=== PATIENT | female | born 1995 | race Caucasian/White ===

== ENCOUNTER → 2020-08-11 09:55 | Outpatient (BNVA) | payer OTHER, SELFPAY | PROVIDERS: PCP Internal Medicine; Visit Provider Advanced Practice Midwife ==

== ENCOUNTER 2020-08-18 08:48 | Outpatient (REF) | payer OTHER, SELFPAY ==
--- NOTE | ~2020-08-18 | US_ITS ---
EXAMINATION: US DIAGNOSTIC ULTRASOUND BREAST, LEFT CLINICAL INFORMATION: Left breast pain upper outer quadrant over 4 months. No palpable mass or discharge. No known family history breast cancer. No prior breast imaging. Age 25. COMPARISON: None. TECHNIQUE: Ultrasound left breast is targeted to the area of clinical concern upper outer quadrant. Grayscale imaging and color Doppler are performed without and with harmonics. FINDINGS: There is no focal suspicious finding. There is no solid mass, architectural abnormality, duct ectasia, or edema in the soft tissue planes. There is an incidental simple cyst 3:00 position 4 cm from nipple measuring only 0.9 x 0.5 cm. Results are discussed with the patient at time of visit. US/US breast LT limited IMPRESSION: 1. Incidental simple cyst 3:00 position under 1 cm. 2. No solid mass, architectural abnormality, or inflammatory changes. ASSESSMENT: BI-RADS 2: Benign RECOMMENDATION: 1. Patient's left breast pain should be managed based on the clinical impression. 2. Otherwise, routine annual screening mammography, beginning age 40, or earlier as clinical risk factors warrant. This patient's information was entered into a reminder system with a target due date for their next mammogram.
== END 2020-08-18 08:49 | disposition home or self-care (01) ==
LOC: HO.MAMMO 08:48
PROVIDERS: PCP Internal Medicine; Visit Provider Advanced Practice Midwife
DX: N64.4 Mastodynia (principal)
CPT/HCPCS: 76642

== ENCOUNTER 2020-10-07 08:19 | Outpatient (REF) | payer OTHER, SELFPAY ==
[2020-10-07 08:39] LABS: COVID-19 Test Negative (Negative)
== END 2020-10-07 08:20 | disposition home or self-care (01) ==
LOC: HO.EMPCOV 08:19
PROVIDERS: Visit Provider Internal Medicine
DX: Z20.822 Contact with and (suspected) exposure to COVID-19 (principal)
CPT/HCPCS: 36415; 87635; C9803

== ENCOUNTER 2021-07-15 13:51 | Outpatient (REF) | payer OTHER, SELFPAY ==
[2021-07-15 15:11] LABS: TSH reflex Free T4 1.94 uIU/mL (0.32-4.0)
== END 2021-07-15 13:52 | disposition home or self-care (01) ==
LOC: HO.LAB 13:51
PROVIDERS: PCP Internal Medicine; Visit Provider Internal Medicine Endocrinology, Diabetes & Metabolism
DX: E03.9 Hypothyroidism, unspecified (principal)
CPT/HCPCS: 36415; 84443

== ENCOUNTER 2021-11-16 10:01 | Outpatient (REF) | payer OTHER, SELFPAY ==
[2021-11-16 10:22] LABS: MANUAL DIFF FLAG NO
[2021-11-16 10:35] LABS: Basophils Percent Auto 0.4 % (0-2); Eosinophils Percent Auto 0.4 % (0-4); Hematocrit 38.3 % (37.0-47.0); Hemoglobin 12.7 g/dl (12.0-16.0); Imm Gran Abs Auto 0.01 X10*3/uL (0.00-0.03); Imm Gran Pct Auto 0.1 % (0.0-0.4); Lymphocytes Absolute Auto 1.8 X10*3/uL (1.2-4.9); Lymphocytes Percent Auto 26.2 % (20-40); Mean Corpuscular HGB Conc 33.2 g/dl (31.0-35.0); Mean Corpuscular Hemoglobin 27.1 pg (27.0-33.0); Mean Corpuscular Volume 81.7 fL (80.0-98.0); Mean Platelet Volume 10.3 fL (9.4-12.3); Monocytes Absolute Auto 0.6 X10*3/uL (0.1-1.2); Monocytes Percent Auto 8.2 % (2-11); Neutrophils Absolute Auto 4.4 x10*3/uL (2.0-8.3); Neutrophils Percent Auto 64.7 % (45-73); Platelet Count 276 X10*3/uL (160-400); Red Blood Count 4.69 X10*6/uL (4.20-5.50); Red Cell Distribution Width 13.1 % (11.0-16.0); White Blood Count 6.8 X10*3/uL (4.8-10.8)
[2021-11-16 11:16] LABS: Alanine Aminotransferase 10 U/L (0-31); Albumin Level 4.9 g/dL (3.5-5.0); Alkaline Phosphatase 45 U/L (39-117); Anion Gap 12 (12-20); Aspartate Amino Transferase 16 U/L (5-31); Bilirubin Total 0.8 mg/dL (0.0-1.0); Blood Urea Nitrogen 9 mg/dL (9-16); Calcium 9.7 mg/dL (8.4-10.2); Carbon Dioxide 23 mmol/L (22-29); Chloride 107 mmol/L (96-108); Cholesterol 201 mg/dL; Estimated Glomerular Filt Rate > 60; Gamma Glutamyl Transpeptidase 9 U/L (7-33); Glucose Random 83 mg/dL (60-115); HDL Cholesterol 61 mg/dL; Iron 106 mcg/dL (30-160); LDL Cholesterol Calculated 127 mg/dl; Percent Iron Saturation 33 % (15-50); Potassium 4.3 mmol/L (3.3-5.1); Sodium 138 mmol/L (135-145); Total Iron Binding Capacity 326 mcg/dL (228-428); Total Protein 7.6 g/dL (6.5-8.0); Triglycerides 66 mg/dL; Unsaturated Iron Binding 220 ug/dL
[2021-11-16 11:57] LABS: Ferritin 32 ng/mL (10-122); Free T4 (Free Thyroxine) 1.06 ng/dL (0.71-1.85); Thyroid Stimulating Hormone 1.87 uIU/mL (0.32-4.0); Vitamin D 25-OH Total 24.9 ng/mL (>30)
[2021-11-16 13:44] LABS: Insulin 4 uU/mL (2-29)
[2021-11-17 13:47] LABS: Calcium (PTHI) 9.9 mg/dL (8.6-10.2); PTHI 29 pg/mL (16-77)
[2021-11-17 18:42] LABS: Triiodothyronine T3 Free 3.2 pg/mL (2.3-4.2)
[2021-11-17 18:46] LABS: DHEA Sulfate 195 mcg/dL (14-349); Follicle Stimulating Hormone 5.1 mIU/mL
[2021-11-17 23:03] LABS: Thyroglobulin Antibodies 3 IU/mL (< or = 1); Thyroid Peroxidase Antibodies <1 IU/mL (<9)
[2021-11-18 14:41] LABS: CRP High Sensitivity <0.3 mg/L
[2021-11-19 16:41] LABS: Triiodothyronine T3 Reverse 18 ng/dL (8-25)
[2021-11-21 00:17] LABS: Dihydrotestosterone 28 ng/dL (< OR = 20)
[2021-11-21 05:07] LABS: Methylmalonic Acid 103 nmol/L (87-318)
[2021-11-21 14:36] LABS: Progesterone 19.9 ng/mL
[2021-11-21 18:21] LABS: Testosterone, Free 2.6 pg/mL (0.1-6.4); Testosterone, Total 32 ng/dL (2-45)
[2021-11-24 03:52] LABS: Estradiol Free 3.41 pg/mL; Estradiol, Ultrasensitive 202 pg/mL
== END 2021-11-16 10:02 | disposition home or self-care (01) ==
LOC: HO.LAB 10:01
PROVIDERS: PCP Internal Medicine; Visit Provider Internal Medicine
DX: E03.9 Hypothyroidism, unspecified (principal); F32.81 Premenstrual dysphoric disorder; E11.9 Type 2 diabetes mellitus without complications; E55.9 Vitamin D deficiency, unspecified; D64.9 Anemia, unspecified; E28.2 Polycystic ovarian syndrome; E78.5 Hyperlipidemia, unspecified; K76.0 Fatty (change of) liver, not elsewhere classified; R53.83 Other fatigue
CPT/HCPCS: 36415; 80053; 80061; 82306; 82627; 82642; 82670; 82681; 82728; 82977; 83001; 83002; 83090; 83525; 83540; 83921; 83970; 84144; 84402; 84403; 84439; 84443; 84481; 84482; 85025; 86141; 86376; 86800

== ENCOUNTER 2022-04-26 19:49 | Inpatient (IN) | payer OTHER, SELFPAY ==
--- NOTE | ~2022-04-26 | CT_ITS ---
EXAMINATION: CT ABDOMEN AND PELVIS WITHOUT CONTRAST CLINICAL INFORMATION: Left-sided flank pain, pyelonephritis vs obstructing stone COMPARISON: None TECHNIQUE: Multidetector volumetric imaging was performed from the superior aspect of the liver through the pubic symphysis. Sagittal and coronal reformatted images were obtained on the technologist's workstation. This CT examination was performed using dose optimization techniques as appropriate, variously including the following: *Automated exposure control *Adjustment of mA and/or kV according to patient size (this includes techniques or standardized protocols for targeted exams where dose is matched to indication/reason for exam; i.e. extremities or head) *Use of iterative reconstruction technique DLP: 302 mGy-cm FINDINGS: LUNG BASES: The visualized lung bases are unremarkable. LIVER, GALLBLADDER, AND BILIARY TREE: The liver is normal in size, shape, and attenuation. No focal hepatic lesion or biliary ductal dilatation is present. The gallbladder is unremarkable with no evidence of radiopaque gallstones, gallbladder wall thickening, or obvious pericholecystic inflammatory changes. PANCREAS: Unremarkable. SPLEEN: Unremarkable. ADRENAL GLANDS: Unremarkable. KIDNEYS AND URETERS: The kidneys are normal in size, shape, and attenuation. There is a barely perceptible punctate densities seen in the right kidney (see saucedo image). No hydronephrosis, hydroureter, or definitive calculi seen. No perinephric stranding. BLADDER: Unremarkable. GASTROINTESTINAL TRACT: The small and large bowel are unremarkable. The appendix is unremarkable. ABDOMINAL WALL: No significant hernia is appreciated. LYMPH NODES: No retroperitoneal lymphadenopathy. VASCULAR: Unremarkable. PELVIC VISCERA: A retroverted uterus is present. A small amount of free fluid is present in the pelvis. An abnormal adnexal mass is not seen. OSSEOUS STRUCTURES: Unremarkable. CT/CT abdomen pelvis wo IV con IMPRESSION: A cause for the patient's left flank pain has not been found. No calculi are present. There is no evidence of pyelonephritis. However, this noncontrast CT scan does not rule out hilum nephritis. Fleischner guidelines were followed.
[2022-04-26 20:16] VITALS: PULSE 97; RESP 16; TEMP 36.6; O2SAT 97; BMI 18.5
--- NOTE | 2022-04-26 20:16 | ED_ITS ---
HPI - Abdominal Pain General Chief Complaint: Urogenital-Female <Miranda Younger NP - Last Filed: 04/26/22 20:20> Stated Complaint: UTI/ Back pain <Miranda Younger NP - Last Filed: 04/26/22 20:20> Time Seen by Provider: 04/26/22 22:16 <Miranda Younger NP - Last Filed: 04/26/22 20:20> Source: patient <Janes Reese MD - Last Filed: 04/26/22 22:35> Mode of arrival: ambulatory <Janes Reese MD - Last Filed: 04/26/22 22:35> Limitations: no limitations <Janes Reese MD - Last Filed: 04/26/22 22:35> History of Present Illness HPI narrative: 27-year-old female was seen earlier today at work connection for UTI symptoms and hematuria patient was started on Macrobid, most of the dysuria and hematuria symptoms improved after the 1st dose of Macrobid but patient has been having bilateral flank pain. Patient has no fever or chills improvement of the lower urinary symptoms however she is concern of the flank pain. <Janes Reese MD - Last Filed: 04/26/22 22:35> Related Data Home Medications: Home Medications Medication Instructions Recorded Confirmed levothyroxine 25 mcg tablet 25 mcg PO DAILY 08/11/20 (Synthroid) Previous Rx's Medication Instructions Recorded cefuroxime axetil 500 mg tablet 500 mg PO BID #14 tabs 04/26/22 <Miranda Younger NP - Last Filed: 04/26/22 20:20> Allergies/Adverse Reactions: Allergies Allergy/AdvReac Type Severity Reaction Status Date / Time No Known Allergies Allergy Verified 08/11/20 10:12 <Miranda Younger NP - Last Filed: 04/26/22 20:20> Review of Systems Review of Systems All other systems are reviewed and are negative Constitutional: Reports as per HPI and Reports no additional constitutional complaints Eyes: Reports as per HPI and Reports no additional eye complaints Reports system reviewed and no additional complaints, except as documented Cardiovascular: Reports as per HPI and Reports no additional cardiovascular complaints Respiratory: Reports as per HPI and Reports no additional respiratory complaints Gastrointestinal: Reports as per HPI and Reports no additional gastrointestinal complaints Genitourinary: Reports no additional female genitourinary complaints Musculoskeletal: Reports no additional musculoskeletal complaints Skin/Breast: Reports system reviewed and no additional complaints, except as docu Psychiatric: Reports no additional psychiatric complaints Endocrine: Reports no additional endocrine complaints Hematologic/Lymphatic: Reports no additional hematologic/lymphatic complaints Allergic/Immunologic: Reports no additional allergic/immunologic complaints Reports system reviewed and no additional complaints, except as documented and Reports Abnormal speech present <Janes Reese MD - Last Filed: 04/26/22 22:35> [facility] Past Medical History Medical History: Medical History Thyroid disease <Miranda Younger NP - Last Filed: 04/26/22 20:20> Social History Social History: Social History Alcohol intake: never Advance Directives: No Advance Directives Information Provided: No Gender identity: Female <Miranda Younger NP - Last Filed: 04/26/22 20:20> Physical Exam ED Vital Signs: Vital Signs - 24 hr 04/26/22 20:16 04/26/22 22:07 Temperature 97.8 F 98.3 F Pulse Rate 97 90 Respiratory Rate 16 16 Blood Pressure 129/89 Pulse Oximetry 97 99 Oxygen Delivery Method Room Air Room Air BMI result Body Mass Index 18.5 <Miranda Younger NP - Last Filed: 04/26/22 20:20> Vital Signs - 24 hr 04/26/22 20:16 04/26/22 22:07 Temperature 97.8 F 98.3 F Pulse Rate 97 90 Respiratory Rate 16 16 Blood Pressure 129/89 Pulse Oximetry 97 99 Oxygen Delivery Method Room Air Room Air BMI result Body Mass Index 18.5 Vital signs have been reviewed as appeared to be correct. Blood pressure normal. Heart rate normal. Respiration rate normal. Temperature normal. Oxygen saturation normal. <Janes Reese MD - Last Filed: 04/26/22 22:35> Appearance: Alert. Oriented X3. No acute distress. Head: Normal external exam. Normocephalic. Atraumatic. No Olea signs noted. No raccoon eyes noted Eyes: PERRLA. EOMI. Conjunctiva and sclera normal. Eyelids normal. ENT: TM's Normal. Pharynx normal. Uvula midline. Moist mucous membranes. No trismus noted. No drooling noted. No muffled voice noted. Neck: Normal inspection. Neck supple. FROM. No adenopathy. Thyroid Normal. No meningeal signs. No neck mass noted. CVS: Normal heart rate and rhythm. Heart sound normal. No murmurs noted. Pulses normal throughout. Respiratory: No respiratory distress. Painless inspiration. Breath sounds normal. No wheezes/rales/rhonchi noted. Chest nontender. No accessory muscle usage noted or decreased air movement noted. Abdomen: Soft and nontender. Bowel sounds normal in all 4 quadrants. No distention noted. No organomegaly noted. No visible injury noted. Back: Left CVA tenderness. Full range of motion noted. Skin: Skin warm and dry. Normal skin color. Normal skin turgor. No rashes/lesions/lacerations noted. Extremities: No lower extremity edema. Extremities exhibit normal range of motion. Extremities nontender. Neuro: Oriented X 3. Cranial nerve exam: II-XII are grossly intact No motor deficit. No sensory deficit. Reflexes normal. <Janes Reese MD - Last Filed: 04/26/22 22:35> Course Course Course Narrative: This is a rapid medical exam. Deferred additional HPI, ROS, PE to primary provider. 27 yo female with hypothyroidism here with complaints of UTI symptoms, hematuria noted today. Seen at work connection and started on macrobid (took one dose this afternoon). Concerned d/t lower back pain today. No fevers, chills, vomiting. LMP /. Urine sample not available for review here in our system. Will repeat UA today, check ur preg, obtain labs. VSS. <Miranda Younger NP - Last Filed: 04/26/22 20:20> Reevaluation(s) Reevaluation #1: 27-year-old female returns with a left pyelonephritis, leukocytosis, patient is already on Macrobid as discuss with the patient will give her a L of normal saline and 1 dose of ceftriaxone and add cefuroxime to go home with the Macrobid patient was encouraged to drink plenty of fluid patient was instructed to return if any worsening of her symptoms. Patient also was given the option to be admitted overnight but she rather to be hospitalized overnight, consider CT to rule out obstructive uropathy. <Janes Reese MD - Last Filed: 04/26/22 22:35> Time: 22:12 <Janes Reese MD - Last Filed: 04/26/22 22:35> Medical Decision Making Differential Diagnosis Differential Diagnoses: The differential diagnosis associated with the presentation includes <Janes Reese MD - Last Filed: 04/26/22 22:35> Sepsis/UTI/pyelonephritis. <Janes Reese MD - Last Filed: 04/26/22 22:35> Lab Data MDM Lab Attestation statement: I reviewed the patient's lab results. <Janes Reese MD - Last Filed: 04/26/22 22:35> Result Diagrams: : 04/26/22 20:46 04/26/22 20:42 <Miranda Younger NP - Last Filed: 04/26/22 20:20> Labs: Lab Results 04/26/22 04/26/22 04/26/22 Range/Units 20:42 20:42 20:46 WBC 17.4 H (4.8-10.8) X10*3/uL RBC 4.37 (4.20-5.50) X10*6/uL Hgb 11.9 L (12.0-16.0) g/dl Hct 36.1 L (37.0-47.0) % MCV 82.6 (80.0-98.0) fL MCH 27.2 (27.0-33.0) pg MCHC 33.0 (31.0-35.0) g/dl RDW 13.0 (11.0-16.0) % Plt Count 301 (160-400) X10*3/uL MPV 10.1 (9.4-12.3) fL Immature Gran % (Auto) 0.3 (0.0-0.4) % Neut % (Auto) 78.9 H (45-73) % Lymph % (Auto) 14.4 L (20-40) % Major % (Auto) 6.0 (2-11) % Eos % (Auto) 0.2 (0-4) % Baso % (Auto) 0.2 (0-2) % Lymph # (Auto) 2.5 (1.2-4.9) X10*3/uL Major # (Auto) 1.1 (0.1-1.2) X10*3/uL Eos # (Auto) 0.0 (0.0-0.4) X10*3/uL Baso # (Auto) 0.0 (0.0-0.2) X10*3/uL Abs Immat Gran (auto) 0.06 H (0.00-0.03) X10*3/uL Absolute Neuts (auto) 13.7 H (2.0-8.3) x10*3/uL Absolute Nucleated RBC 0.000 (0.0-0.012) X10*3/uL Nucleated RBC % (auto) 0.0 (0.0-0.2) /100WBC Sodium 139 (135-145) mmol/L Potassium 3.8 (3.3-5.1) mmol/L Chloride 105 (96-108) mmol/L Carbon Dioxide 27 (22-29) mmol/L Anion Gap 11 L (12-20) BUN 7 L (9-16) mg/dL Creatinine 0.82 (0.5-1.4) mg/dL Estim Creat Clear Calc 79.0 Estimated GFR > 60 Random Glucose 90 (60-115) mg/dL Calcium 9.8 (8.4-10.2) mg/dL Urine Color Yellow Urine Appearance Clear Urine pH 8.5 (5.0-9.0) Ur Specific [place] 1.010 (1.005-1.025) Urine Protein Negative (Neg-Trace) mg/dL Urine Glucose (UA) Negative (Negative) mg/dL Urine Ketones Negative (Negative) mg/dL Urine Blood Large (3+) H (Negative) Urine Nitrite Negative (Negative) Ur Leukocyte Esterase Large (3+) H (Negative) Urine RBC >20 H (0-2) /HPF Urine WBC 21-50 H (0-5) /HPF Ur Squamous Epith Cells 3-5 (0-2) /HPF Urine Bacteria None Seen (None Seen) Hyaline Casts 0-2 (0-2) /LPF Urine Test (NEGATIVE) 04/26/22 Range/Units 20:46 WBC (4.8-10.8) X10*3/uL RBC (4.20-5.50) X10*6/uL Hgb (12.0-16.0) g/dl Hct (37.0-47.0) % MCV (80.0-98.0) fL MCH (27.0-33.0) pg MCHC (31.0-35.0) g/dl RDW (11.0-16.0) % Plt Count (160-400) X10*3/uL MPV (9.4-12.3) fL Immature Gran % (Auto) (0.0-0.4) % Neut % (Auto) (45-73) % Lymph % (Auto) (20-40) % Major % (Auto) (2-11) % Eos % (Auto) (0-4) % Baso % (Auto) (0-2) % Lymph # (Auto) (1.2-4.9) X10*3/uL Major # (Auto) (0.1-1.2) X10*3/uL Eos # (Auto) (0.0-0.4) X10*3/uL Baso # (Auto) (0.0-0.2) X10*3/uL Abs Immat Gran (auto) (0.00-0.03) X10*3/uL Absolute Neuts (auto) (2.0-8.3) x10*3/uL Absolute Nucleated RBC (0.0-0.012) X10*3/uL Nucleated RBC % (auto) (0.0-0.2) /100WBC Sodium (135-145) mmol/L Potassium (3.3-5.1) mmol/L Chloride (96-108) mmol/L Carbon Dioxide (22-29) mmol/L Anion Gap (12-20) BUN (9-16) mg/dL Creatinine (0.5-1.4) mg/dL Estim Creat Clear Calc Estimated GFR Random Glucose (60-115) mg/dL Calcium (8.4-10.2) mg/dL Urine Color Urine Appearance Urine pH (5.0-9.0) Ur Specific [place] (1.005-1.025) Urine Protein (Neg-Trace) mg/dL Urine Glucose (UA) (Negative) mg/dL Urine Ketones (Negative) mg/dL Urine Blood (Negative) Urine Nitrite (Negative) Ur Leukocyte Esterase (Negative) Urine RBC (0-2) /HPF Urine WBC (0-5) /HPF Ur Squamous Epith Cells (0-2) /HPF Urine Bacteria (None Seen) Hyaline Casts (0-2) /LPF Urine Test NEGATIVE (NEGATIVE) <Miranda Younger NP - Last Filed: 04/26/22 20:20> Lab Results 04/26/22 04/26/22 04/26/22 Range/Units 20:42 20:42 20:46 WBC 17.4 H (4.8-10.8) X10*3/uL RBC 4.37 (4.20-5.50) X10*6/uL Hgb 11.9 L (12.0-16.0) g/dl Hct 36.1 L (37.0-47.0) % MCV 82.6 (80.0-98.0) fL MCH 27.2 (27.0-33.0) pg MCHC 33.0 (31.0-35.0) g/dl RDW 13.0 (11.0-16.0) % Plt Count 301 (160-400) X10*3/uL MPV 10.1 (9.4-12.3) fL Immature Gran % (Auto) 0.3 (0.0-0.4) % Neut % (Auto) 78.9 H (45-73) % Lymph % (Auto) 14.4 L (20-40) % Major % (Auto) 6.0 (2-11) % Eos % (Auto) 0.2 (0-4) % Baso % (Auto) 0.2 (0-2) % Lymph # (Auto) 2.5 (1.2-4.9) X10*3/uL Major # (Auto) 1.1 (0.1-1.2) X10*3/uL Eos # (Auto) 0.0 (0.0-0.4) X10*3/uL Baso # (Auto) 0.0 (0.0-0.2) X10*3/uL Abs Immat Gran (auto) 0.06 H (0.00-0.03) X10*3/uL Absolute Neuts (auto) 13.7 H (2.0-8.3) x10*3/uL Absolute Nucleated RBC 0.000 (0.0-0.012) X10*3/uL Nucleated RBC % (auto) 0.0 (0.0-0.2) /100WBC Sodium 139 (135-145) mmol/L Potassium 3.8 (3.3-5.1) mmol/L Chloride 105 (96-108) mmol/L Carbon Dioxide 27 (22-29) mmol/L Anion Gap 11 L (12-20) BUN 7 L (9-16) mg/dL Creatinine 0.82 (0.5-1.4) mg/dL Estim Creat Clear Calc 79.0 Estimated GFR > 60 Random Glucose 90 (60-115) mg/dL Calcium 9.8 (8.4-10.2) mg/dL Urine Color Yellow Urine Appearance Clear Urine pH 8.5 (5.0-9.0) Ur Specific [place] 1.010 (1.005-1.025) Urine Protein Negative (Neg-Trace) mg/dL Urine Glucose (UA) Negative (Negative) mg/dL Urine Ketones Negative (Negative) mg/dL Urine Blood Large (3+) H (Negative) Urine Nitrite Negative (Negative) Ur Leukocyte Esterase Large (3+) H (Negative) Urine RBC >20 H (0-2) /HPF Urine WBC 21-50 H (0-5) /HPF Ur Squamous Epith Cells 3-5 (0-2) /HPF Urine Bacteria None Seen (None Seen) Hyaline Casts 0-2 (0-2) /LPF Urine Test (NEGATIVE) 04/26/22 Range/Units 20:46 WBC (4.8-10.8) X10*3/uL RBC (4.20-5.50) X10*6/uL Hgb (12.0-16.0) g/dl Hct (37.0-47.0) % MCV (80.0-98.0) fL MCH (27.0-33.0) pg MCHC (31.0-35.0) g/dl RDW (11.0-16.0) % Plt Count (160-400) X10*3/uL MPV (9.4-12.3) fL Immature Gran % (Auto) (0.0-0.4) % Neut % (Auto) (45-73) % Lymph % (Auto) (20-40) % Major % (Auto) (2-11) % Eos % (Auto) (0-4) % Baso % (Auto) (0-2) % Lymph # (Auto) (1.2-4.9) X10*3/uL Major # (Auto) (0.1-1.2) X10*3/uL Eos # (Auto) (0.0-0.4) X10*3/uL Baso # (Auto) (0.0-0.2) X10*3/uL Abs Immat Gran (auto) (0.00-0.03) X10*3/uL Absolute Neuts (auto) (2.0-8.3) x10*3/uL Absolute Nucleated RBC (0.0-0.012) X10*3/uL Nucleated RBC % (auto) (0.0-0.2) /100WBC Sodium (135-145) mmol/L Potassium (3.3-5.1) mmol/L Chloride (96-108) mmol/L Carbon Dioxide (22-29) mmol/L Anion Gap (12-20) BUN (9-16) mg/dL Creatinine (0.5-1.4) mg/dL Estim Creat Clear Calc Estimated GFR Random Glucose (60-115) mg/dL Calcium (8.4-10.2) mg/dL Urine Color Urine Appearance Urine pH (5.0-9.0) Ur Specific [place] (1.005-1.025) Urine Protein (Neg-Trace) mg/dL Urine Glucose (UA) (Negative) mg/dL Urine Ketones (Negative) mg/dL Urine Blood (Negative) Urine Nitrite (Negative) Ur Leukocyte Esterase (Negative) Urine RBC (0-2) /HPF Urine WBC (0-5) /HPF Ur Squamous Epith Cells (0-2) /HPF Urine Bacteria (None Seen) Hyaline Casts (0-2) /LPF Urine Test NEGATIVE (NEGATIVE) <Janes Reese MD - Last Filed: 04/26/22 22:35> Medications Administered Generic Name Dose Route Start Last Admin Trade Name Freq PRN Reason Stop Dose Admin Sodium Chloride 1,000 mls @ 999 mls/hr 04/26/22 22:00 04/26/22 22:18 Ns IV 04/26/22 23:00 999 mls/hr .Q1H1M ONE Administration Discontinued Medications Generic Name Dose Route Start Last Admin Trade Name Freq PRN Reason Stop Dose Admin Ceftriaxone Sodium 1 gm/ 50 mls @ 100 mls/hr 04/26/22 22:00 04/26/22 22:25 Sodium Chloride IV 04/26/22 22:29 100 mls/hr ONCE ONE Administration <Miranda Younger NP - Last Filed: 04/26/22 20:20> Medications Administered Generic Name Dose Route Start Last Admin Trade Name Freq PRN Reason Stop Dose Admin Sodium Chloride 1,000 mls @ 999 mls/hr 04/26/22 22:00 04/26/22 22:18 Ns IV 04/26/22 23:00 999 mls/hr .Q1H1M ONE Administration Discontinued Medications Generic Name Dose Route Start Last Admin Trade Name Freq PRN Reason Stop Dose Admin Ceftriaxone Sodium 1 gm/ 50 mls @ 100 mls/hr 04/26/22 22:00 04/26/22 22:25 Sodium Chloride IV 04/26/22 22:29 100 mls/hr ONCE ONE Administration <Janes Reese MD - Last Filed: 04/26/22 22:35> Discharge Plan Discharge Clinical Impression: Pyelonephritis <Miranda Younger NP - Last Filed: 04/26/22 20:20> Patient Disposition: Admitted As Inpatient <Miranda Younger NP - Last Filed: 04/26/22 20:20> Additional Instructions: Drink plenty of fluids, take the 2 antibiotic cefuroxime/Macrobid as pre scribed, return if persistent fever or increase flank pain or feeling sick. <Miranda Younger NP - Last Filed: 04/26/22 20:20>
--- OUTSIDE RECORDS SUMMARY | 2022-04-26 20:44 | XMS_ITS | Continuity of Care Document ---
:1995 Author Organization [facility] [place] Address [address] [place] [address], [facility] Floor [address] [place] [phone]- Care Team Providers Name Role Phone Vicente MATHEW, Gregg Yan Primary Care Physician Encounter [facility] Date(s): 11/16/20 - 12/16/20 [facility] [address] [facility], 4th Floor [address] [place] [id number] Allergies, Adverse Reactions, Alerts Substance Reaction Severity Status levothyroxine Active Pollen Active Medications Multivitamins By Mouth, Daily, 0 Refills, Maintenance, 06/24/18 12:25:09 EST Start Date: 06/24/18 Status: OrderedSynthroid 0.025 mg oral tablet 1 tablet = 25 mcg, By Mouth, Daily in AM, # 30 tablet, 0 Refills, Maintenance, 06/24/18 12:24:28 EST, Tablet Start Date: 06/24/18 Status: Ordered Social History Social History Type Response Smoking Status Never entered on: 09/15/20 Sex
--- OUTSIDE RECORDS SUMMARY | 2022-04-26 20:44 | XMS_ITS | Continuity of Care Document ---
:1995 Author Organization [facility] [place] Address [address] [place] [address], 4th Floor [address] [place] [phone]- Care Team Providers Name Role Phone Gregg Zhang MD Primary Care Physician Encounter [facility] [place] Date(s): 02/06/22 - 02/13/22 [facility] [address] [facility], 4th Floor [address] [place] [id number] Attending Physician: Gali Mccauley MD Referring Physician: Gregg Zhang MD Allergies, Adverse Reactions, Alerts Substance Reaction Severity Status levothyroxine Active Pollen Active Medications clomiPHENE 50 mg oral tablet 50 mg, 1, tablet, By Mouth, Daily, Begiining beginning on the 3rd day of menstrual cycle, # 5 tablet, Refills 3, Tot. Refills 3, Maintenance, 02/06/22 16:23:00 EDT, Route to Pharmacy Electronically, [facility]/pharmacy #[id number], Partial fill upon patient requ... Start Date: 02/06/22 Stop Date: 02/26/22 Status: OrderedOvidrel 250 mcg/0.5 mL subcutaneous solution = 250 mcg, Subcutaneous Injection, Once, Inject once per cycle when directed [phone], # 1 each,3 Refills, Soft Stop, 02/07/22 14:51:00 EDT, Solution, [facility], Partial fill upon patient request if the prescription is for a schedul... Start Date: 02/07/22 Status: OrderedPrenatal Multivitamins By Mouth, Daily, 0 Refills, Maintenance, 06/24/18 12:25:09 EST Start Date: 06/24/18 Status: OrderedSynthroid 0.025 mg oral tablet 1 tablet = 25 mcg, By Mouth, Daily in AM, # 30 tablet, 0 Refills, Maintenance, 06/24/18 12:24:28 EST, Tablet Start Date: 06/24/18 Status: OrderedVitamin D3 1000 intl units oral tablet 1 tablet = 25 mcg, By Mouth, Daily, 0 Refills, Maintenance, 02/06/22 14:53:00 EDT, Partial fill uponpatient request if the prescription is for a schedule II opioid drug. Start Date: 02/06/22 Status: Ordered Vital Signs Most recent to oldest [Reference Range]: 1 Height 165 cm (02/06/22 2:40 PM) Weight 51.6 kg (02/06/22 2:40 PM) Pulse Rate [55-90 bpm] 82 bpm (02/06/22 2:40 PM) Body Mass Index [18.5-24.99 kg/m2] 18.95 kg/m2 (02/06/22 2:40 PM) Blood Pressure [90-138/55-84 mm Hg] 135/69 mm Hg (02/06/22 2:40 PM) Blood pressure sites Arm, right (02/06/22 2:40 PM) Weight Obtained Via Standing scale (02/06/22 2:40 PM) Social History Social History Type Response Smoking Status Never entered on: 09/15/20 Sex Patient Care team information PersonnelName: Vicente MATHEW, Gregg S Address: Address: [address] [place] [id number] [place] [address]
--- OUTSIDE RECORDS SUMMARY | 2022-04-26 20:44 | XMS_ITS | Continuity of Care Document ---
:1995 Author Organization [facility] [place] Address [address] [place] [address], [facility] Floor [address] [place] [phone]- Care Team Providers Name Role Phone Vicente MAHTEW, Gregg Yan Primary Care Physician Encounter [facility] [place] Date(s): 02/27/22 - 03/06/22 [facility] [address] [place] [address], [facility] Floor [address] [place] [id number] Attending Physician: Gali Mccauley MD Allergies, Adverse Reactions, Alerts Substance Reaction Severity Status levothyroxine Active Pollen Active Medications clomiPHENE 50 mg oral tablet 50 mg, 1, tablet, By Mouth, Daily, Begiining beginning on the 3rd day of menstrual cycle, # 5 tablet, Refills 3, Tot. Refills 3, Maintenance, 02/06/22 16:23:00 EDT, Route to Pharmacy Electronically, [facility]/pharmacy #[id number], Partial fill upon patient requ... Start Date: 02/06/22 Stop Date: 02/26/22 Status: OrderedOvidrel 250 mcg/0.5 mL subcutaneous solution = 250 mcg, Subcutaneous Injection, Once, Inject once per cycle when directed [phone], # 1 each,3 Refills, Soft Stop, 02/07/22 [...] oldest [Reference Range]: 1 Height 165 cm (02/27/22 2:52 PM) Weight 51.3 kg (02/27/22 2:52 PM) Pulse Rate [55-90 bpm] 73 bpm (02/27/22 2:52 PM) Body Mass Index [18.5-24.99 kg/m2] 18.84 kg/m2 (02/27/22 2:52 PM) Blood Pressure [90-138/55-84 mm Hg] 127/69 mm Hg (02/27/22 2:52 PM) Blood pressure sites Arm, right (02/27/22 2:52 PM) Weight Obtained Via Standing scale (02/27/22 2:52 PM) Social History Social History Type Response Smoking Status Never entered on: 09/15/20 Sex Patient Care team information PersonnelName: Vicente MATHEW, Gregg S Address: Address: [address] [place] [address]
--- OUTSIDE RECORDS SUMMARY | 2022-04-26 20:44 | XMS_ITS | Continuity of Care Document ---
:1995 Author Organization [facility] Address [address] [place] [address], 4th Floor [address] [place] [phone]- Care Team Providers Name Role Phone Vicente MATHEW, Gregg S Primary Care Physician Encounter [facility] [place] [facility] [place] Date(s): 03/04/22 - 04/03/22 [facility] [address] [place] [address], [address]th Floor [address] [place] [id number] Attending Physician: Raymond Munoz Admitting Physician: Raymond Munoz Referring Physician: AdmtrRaymond Allergies, Adverse Reactions, Alerts Substance Reaction Severity Status levothyroxine Active Pollen Active Medications clomiPHENE 50 mg oral tablet 50 mg, 1, tablet, By Mouth, Daily, Begiining beginning on the 3rd day of menstrual cycle, # 5 tablet, Refills 3, Tot. Refills 3, Maintenance, 02/06/22 16:23:00 EDT, Route to Pharmacy Electronically, [facility]/pharmacy #[id number], Partial fill upon patient requ... Start Date: 02/06/22 Stop Date: 02/26/22 Status: OrderedOvidrel 250 mcg/0.5 mL subcutaneous solution = 250 mcg, Subcutaneous Injection, Once, Inject once per cycle when directed [phone], # 1 each,3 Refills, Soft Stop, 02/07/22 [...] opioid drug. Start Date: 02/06/22 Status: Ordered Social History Social History Type Response Smoking Status Never entered on: 09/15/20 Sex Patient Care team information Care Team PersonnelName: Vicente MATHEW, Gregg Yan Position: [facility] Physician -Physician Practices Member Role: PCP Address: Address: [address] [place] [address]- Name: Neil MATHEW, Deniz Fitzgerald Position: [facility] HEAD OF STORE OPERATIONS Member Role: [employer]PER[employer] Physician Address: Address: [address] [place] [address] [facility], [place], [place] [address] Care Team Related PersonsName: EULOGIO AVILES Address: home [address] [place] [id number]
--- OUTSIDE RECORDS SUMMARY | 2022-04-26 20:44 | XMS_ITS | Continuity of Care Document ---
:1995 Author Organization [facility] Address [address] [place] [address]- Care Team Providers Name Role Phone Vicente MATHEW, Gregg Yan Primary Care Physician Encounter [facility] [place] Date(s): 05/19/19 - 05/19/[address] [address]- [facility] Attending Physician: Jillian Buckley MD Allergies, Adverse Reactions, Alerts Substance Reaction Severity Status levothyroxine Active Medications Multivitamins By Mouth, Daily, 0 Refills, Maintenance, 06/24/18 12:25:09 EST Start Date: 06/24/18 Status: OrderedSynthroid 0.025 mg oral tablet 1 tablet = 25 mcg, By Mouth, Daily in AM, # 30 tablet, 0 Refills, Maintenance, 06/24/18 12:24:28 EST, Tablet Start Date: 06/24/18 Status: Ordered
--- OUTSIDE RECORDS SUMMARY | 2022-04-26 20:44 | XMS_ITS | Continuity of Care Document ---
:1995 Author Organization [facility] Address Unavailable , Care Team Providers Name Role Phone Gregg Zhang MD Primary Care Physician Encounter [facility] [place] Date(s): 11/24/20 - 03/24/21 [facility] Attending Physician: Nishi Burks MD Allergies, Adverse Reactions, Alerts Substance Reaction [...]
--- OUTSIDE RECORDS SUMMARY | 2022-04-26 20:44 | XMS_ITS | Continuity of Care Document ---
:1994 Author Organization [facility] Address [address] [facility], 4th Floor [address] [place] [address]- Care Team Providers Name Role Phone Gregg Zhang MD Primary Care Physician [id number] Date(s[facility] 12/22/21 - 01/21/22 [facility] [address] [facility], 4th Floor [address] [place] [id number] Allergies, Adverse Reactions, Alerts Substance Reaction [...] Smoking Status Never entered on: 09/15/20 Sex Care Team PersonnelName: Gregg Zhang MD Address: [address] [place] [address]
--- OUTSIDE RECORDS SUMMARY | 2022-04-26 20:44 | XMS_ITS | Continuity of Care Document ---
:1995 Author Organization [facility] Address [address] [place] [address], [facility] [address] [place] [address]- Care Team Providers Name Role Phone Gregg Zhang MD Primary Care Physician [place] [facility] [place](s): 09/16/20 - 09/23/20 [facility] [address] [facility], 4th Floor [address] [place] [id number] [[email or web address]] Attending Physician: Nishi Burks MD Referring Physician: Gregg Zhang MD Allergies, Adverse Reactions, Alerts Substance Reaction Severity Status levothyroxine Active Pollen Active Medications Multivitamins By Mouth, Daily, 0 Refills, Maintenance, 06/24/18 12:25:09 EST Start Date: 06/24/18 Status: OrderedSynthroid 0.025 mg oral tablet 1 tablet = 25 mcg, By Mouth, Daily in AM, # 30 tablet, 0 Refills, Maintenance, 06/24/18 12:24:28 EST, Tablet Start Date: 06/24/18 Status: Ordered Procedures Procedure Date Related Diagnosis Body Site Status Tonsillectomy and adenoidectomy1 2005 Completed Hernia 2000 Completed [facility] [place] Vital Signs Most recent to oldest [Reference Range]: 1 2 Height 165 cm 165 cm (09/16/20 10:03 AM) (09/15/20 2:51 PM) Weight 48.18 kg (09/15/20 2:51 PM) Body Mass Index [18.5-24.99] 17.7 *L* (09/15/20 2:51 PM) Blood pressure sites Arm, left (09/16/20 10:03 AM) Weight Obtained Via Standing scale Patient/family state d (09/16/20 10:03 AM) (09/15/20 2:51 PM) Social History Social History Type Response Smoking Status Never entered on: 09/15/20 Sex
--- OUTSIDE RECORDS SUMMARY | 2022-04-26 20:44 | XMS_ITS | Continuity of Care Document ---
:1995 Author Organization [facility] Address [address] [facility], 4th Floor [address] [place] [phone]- Care Team Providers Name Role Phone Vicente MATHEW, Gregg Yan Primary Care Physician Encounter [facility] [place] Date(s): 09/16/20 - 10/16/20 [facility] [address] [facility], 4th [address] [place] [id number] Attending Physician: Raymond Munoz Admitting Physician: Raymond [...]
--- OUTSIDE RECORDS SUMMARY | 2022-04-26 20:44 | XMS_ITS | Continuity of Care Document ---
:1995 Author Organization [facility] Address Unavailable , Care Team Providers Name Role Phone Gregg Zhang MD Primary Care Physician [place] [facility] [place] 02/22/21 - 03/24/21 [facility] Attending Physician: Raymond Munoz Admitting Physician: Raymond [...]
--- OUTSIDE RECORDS SUMMARY | 2022-04-26 20:44 | XMS_ITS | Continuity of Care Document ---
:1994 Author Organization [facility] Address [address] [place] [address], [facility] Floor [address] [place] [address]- Care Team Providers Name Role Phone Vicente MATHEW, Gregg Yan Primary Care Physician Encounter [facility] [place] Date(s): 03/03/22 - 03/10/22 [facility] [address] [place] [address], 4th Floor [address] [place] [id number] Attending Physician: Not on Staff, Attending MD Referring Physician: Gali Mccauley MD Allergies, Adverse Reactions, Alerts Substance Reaction Severity Status levothyroxine Active Pollen Active Medications clomiPHENE 50 mg oral tablet 50 mg, 1, tablet, By Mouth, Daily, Begiining beginning on the 3rd day of menstrual cycle, # 5 tablet, Refills 3, Tot. Refills 3, Maintenance, 02/06/22 16:23:00 EDT, Route to Pharmacy Electronically, [facility]/pharmacy #[id number], Partial fill upon patient requ... Start Date: 02/06/22 Stop Date: 02/26/22 Status: OrderedOvidrel 250 mcg/0.5 mL subcutaneous solution = 250 mcg, Subcutaneous Injection, Once, Inject once per cycle when directed [phone], # 1 each,3 Refills, Soft Stop, 02/07/22 [...] Care team information PersonnelName: Vicente MATHEW, Gregg Yan Address: Address: [address] [place] [address]
--- OUTSIDE RECORDS SUMMARY | 2022-04-26 20:44 | XMS_ITS | Continuity of Care Document ---
:1994 Author Organization [facility] Address [address] [place] [address], [facility] Floor [address] [place] [address]- Care Team Providers Name Role Phone Vicente MATHEW, Gregg Yan Primary Care Physician En[facility] [place] Date(s): 03/04/22 - 03/11/22 [facility] [address] [place] [address], 4th Floor [address] [place] [id number] Attending Physician: Not on Staff, Attending MD Referring Physician: Gali Mccauley MD Allergies, Adverse Reactions, Alerts Substance Reaction Severity Status levothyroxine Active Pollen Active Medications clomiPHENE 50 mg oral tablet 50 mg, 1, tablet, By Mouth, Daily, Begiining beginning on the 3rd day of menstrual cycle, # 5 tablet, Refills 3, Tot. Refills 3, Maintenance, 02/06/22 16:23:00 EDT, Route to Pharmacy Electronically, [facility]/pharmacy #[id number], Partial fill upon patient requ... Start Date: 02/06/22 Stop Date: 02/26/22 Status: OrderedOvidrel 250 mcg/0.5 mL subcutaneous solution = 250 mcg, Subcutaneous Injection, Once, Inject once per cycle when directed [phone], # 1 each,3 Refills, Soft Stop, 02/07/22 [...] PersonnelName: Vicente MATHEW, Gregg Yan Address: Address: [address] [place] [address]
--- OUTSIDE RECORDS SUMMARY | 2022-04-26 20:44 | XMS_ITS | Continuity of Care Document ---
:1994 Author Organization [facility] Address [address] [facility], 4th Floor [address] [place] [phone]- Care Team Providers Name Role Phone Vicente MATHEW, Gregg Yan Primary Care Physician [place] [facility] [place](s[place] 08/02/20 - 09/01/20 [facility] [address] [place] [address], 4th Floor [address] [place] [id number] Allergies, Adverse Reactions, Alerts Substance Reaction Severity Status levothyroxine Active Medications Multivitamins By Mouth, Daily, 0 Refills, Maintenance, 06/24/18 12:25:09 EST Start Date: 06/24/18 Status: OrderedSynthroid 0.025 mg oral tablet 1 tablet = 25 mcg, By Mouth, Daily in AM, # 30 tablet, 0 Refills, Maintenance, 06/24/18 12:24:28 EST, Tablet Start Date: 06/24/18 Status: Ordered
--- OUTSIDE RECORDS SUMMARY | 2022-04-26 20:44 | XMS_ITS | Continuity of Care Document ---
:1994 Author Organization [facility] Address [address] [place] [address], [facility] [address] [place] [address]- Care Team Providers Name Role Phone Vicente MATHEW, Gregg S Primary Care Physician [place] [facility] [place](s): 03/20/22 - 04/19/22 [facility] [address] [place] [address], [facility] [address] [place] [id number] Allergies, Adverse Reactions, Alerts Substance Reaction Severity Status levothyroxine Active Pollen Active Medications clomiPHENE 50 mg oral tablet 50 mg, 1, tablet, By Mouth, Daily, Begiining beginning on the 3rd day of menstrual cycle, # 5 tablet, Refills 3, Tot. Refills 3, Maintenance, 02/06/22 16:23:00 EDT, Route to Pharmacy Electronically, [facility]/pharmacy #[id number], Partial fill upon patient requ... Start Date: 02/06/22 Stop Date: 02/26/22 Status: OrderedOvidrel 250 mcg/0.5 mL subcutaneous solution = 250 mcg, Subcutaneous Injection, Once, Inject once per cycle when directed [phone], # 1 each,3 Refills, Soft Stop, 02/07/22 [...] Team PersonnelName: Vicente MATHEW, Gregg Yan Position: [facility] Physician -Physician Practices Member Role: PCP Address: Address: [address] [place] [address]- Name: Neil MATHEW, Deniz Fitzgerald Position: [facility] PEARLER Member Role: Lifetime PEARLER Physician Address: Address: [address] [place] [address] [facility], [address] Care Team Related PersonsName: EULOGIO AVILES Address: home [address] [place] [address]
--- OUTSIDE RECORDS SUMMARY | 2022-04-26 20:44 | XMS_ITS | Continuity of Care Document ---
:1994 Author Organization [facility] Address [address] [facility], [facility] Floor [address] [place] [address]- Care Team Providers Name Role Phone Vicente MATHEW, Gregg Yan Primary Care Physician Encounter [facility] Date(s): 10/05/20 - 11/04/20 [facility] [address] [facility], 4th Floor [address] [place] [id number] Allergies, Adverse Reactions, Alerts Substance [...]
--- OUTSIDE RECORDS SUMMARY | 2022-04-26 20:44 | XMS_ITS ---
:1994 Author Care Team Providers Name Role Phone LEWIS PHILLIPS MD Primary Care Provider [phone] Allergies Code Code System Name Reaction Severity Status Onset 15088 RxNorm Levothyroxine ? ? Active ? Medications Name Status Start Date Stop Date ? ? Bactrim DS 800 mg-160 mg tablet Active ? Not available Take 1 tablet twice a day by oral route with meals for 7 days. cephalexin 500 mg capsule Active ? Not av ailable cephalexin 500 mg tablet Active ? Not jasen ilable Take 1 tablet twice a day by oral route with meals for 7 days. Synthroid Active ? Not available Synthroid 25 mcg tablet Active ? Not avai lable Problems None recorded. Procedures None recorded. Results Lab Results Date Name Specimen Result Interpretation Description Value Range Status Address ? 03/29/2021 Test, ? Hcg negative ? ? [facility]: Urine [address] Sanz Past Encounters Encounter Date Diagnosis Provider 03/29/2021 Acute Folliculitis; Cellulitis; ANI Gauthier: [address], [place] [address], Ph. Social History Tobacco Smoking Status Never Smoker Vaccine List None recorded. Plan of Care Reminders Provider Appointments None recorded. ? ? Lab None recorded. ? ? Referral None recorded. ? ? Procedures None recorded. ? ? Surgeries None recorded. ? ? Imaging None recorded. ? ? Vitals Blood Pressure 125/79 mm[Hg]
[2022-04-26 20:54] LABS: MANUAL DIFF FLAG NO
[2022-04-26 20:54] LABS: Appearance Urine Clear; Color Urine Yellow; Glucose Urine UA Negative (Negative); Leukocyte Esterase Urine Large (3+) (Negative); Nitrite Urine Negative (Negative); PH 8.5 (5.0-9.0); UMIC TRIGGER UACC YES; Urine Blood Large (3+) (Negative); Urine Ketones Negative (Negative); Urine Protein Negative (Neg-Trace)
[2022-04-26 20:56] LABS: UPreg QC Valid YES; Urine Pregnancy NEGATIVE (NEGATIVE)
[2022-04-26 20:57] LABS: Bacteria Urine None Seen (None Seen); Hyaline Casts Urine 0-2 /LPF (0-2); RBC Urine >20 /HPF (0-2); UACC Culture Trigger YES; WBC Urine 21-50 /HPF (0-5)
[2022-04-26 20:58] LABS: Basophils Percent Auto 0.2 % (0-2); Eosinophils Percent Auto 0.2 % (0-4); Hematocrit 36.1 % (37.0-47.0); Hemoglobin 11.9 g/dl (12.0-16.0); Imm Gran Abs Auto 0.06 X10*3/uL (0.00-0.03); Imm Gran Pct Auto 0.3 % (0.0-0.4); Lymphocytes Absolute Auto 2.5 X10*3/uL (1.2-4.9); Lymphocytes Percent Auto 14.4 % (20-40); Mean Corpuscular Hemoglobin 27.2 pg (27.0-33.0); Mean Corpuscular Volume 82.6 fL (80.0-98.0); Mean Platelet Volume 10.1 fL (9.4-12.3); Monocytes Absolute Auto 1.1 X10*3/uL (0.1-1.2); Neutrophils Absolute Auto 13.7 x10*3/uL (2.0-8.3); Neutrophils Percent Auto 78.9 % (45-73); Platelet Count 301 X10*3/uL (160-400); Red Blood Count 4.37 X10*6/uL (4.20-5.50); White Blood Count 17.4 X10*3/uL (4.8-10.8)
[2022-04-26 21:27] LABS: Anion Gap 11 (12-20); Blood Urea Nitrogen 7 mg/dL (9-16); Calcium 9.8 mg/dL (8.4-10.2); Carbon Dioxide 27 mmol/L (22-29); Chloride 105 mmol/L (96-108); Estimated Glomerular Filt Rate > 60; Glucose Random 90 mg/dL (60-115); Potassium 3.8 mmol/L (3.3-5.1); Sodium 139 mmol/L (135-145)
[2022-04-26 22:07] VITALS: BP 129/89; PULSE 90; RESP 16; TEMP 36.8; O2SAT 99
[2022-04-26] MEDS: 0.9 % Sodium Chloride 1,000 ML 999 ML IV (22:18)
[2022-04-26] MEDS: cefTRIAXone sodium 1 GM in 0.9 % Sodium Chloride 50 ML IV (22:25)
[2022-04-26 22:39] LABS: Lactic Acid 0.6 mmol/L (0.5-2.0)
[2022-04-26 23:38] LABS: COVID-19 Test Negative (Negative); IDNOW Serial# BCCEAD1C
--- NOTE | 2022-04-27 00:10 | PM.IMHP ---
History of Present Illness Date of Service: 04/27/22 Chief Complaint: hematuria 27-year-old female with past medical history of hypothyroidism presents to the hospital with complaints of hematuria as well as back pain. Patient reports that she has been having burning on urination for the past 2 days, she went to work connection on day of presentation and received antibiotics, but she had hematuria the would not stop, as well as developed low back pain and significant headache therefore decided to come back to the ED. Patient denies any fever, no chills, no chest pain, no shortness of breath, no abdominal pain, no lower extremity edema and no diarrhea constipation. On arrival to the ED patient hemodynamically stable with no significant abnormal vitals Nebs are significant for WBC count of 17.4, labs otherwise unremarkable, UA shows positive leukocyte Estrace and WBC as well as large amount of blood in urine. Abdominal pelvic CT shows no obstruction or calculi. patient started on IV antibiotics will be admitted for further management Review of Systems Review of Systems: Yes all other systems are reviewed and are negative [facility] Medical History (Updated 04/27/22 @ 05:56 by Dottie Gomez MD) Hypothyroidism Thyroid disease Family History (Updated 04/27/22 @ 05:55 by Dottie Gomez MD) Other No family history of coronary artery disease Surgical History (Updated 04/27/22 @ 05:56 by Dottie Gomez MD) No pertinent past surgical history Social History Alcohol intake: never Smoked in Last 30 Days: No Use of substances other than those prescribed or required for medical reasons: No Advance Directives: No Advance Directives Information Provided: No Patient : No Gender identity: Female Meds Allergies Allergy/AdvReac Type Severity Reaction Status Date / Time No Known Allergies Allergy Verified 08/11/20 10:12 Home Medications Medication Instructions Recorded Confirmed Last Taken Type levothyroxine 25 mcg tablet 25 mcg PO DAILY 08/11/20 04/27/22 Unknown History (Synthroid) Physical Exam Vital Signs and Narrative: Vital Signs: Last Vital Signs Temp 98.3 F 04/26/22 22:07 Pulse 90 04/26/22 22:07 Resp 16 04/26/22 22:07 BP 129/89 04/26/22 22:07 Pulse Ox 99 04/26/22 22:07 O2 Del Method 12/14/22 22:07 BMI result Body Mass Index 18.5 Const: General: cooperative and no acute distress Orientation/consciousness: patient oriented x3 Eyes: General: appearance normal, both eyes and all related structures Pupils: Equal, round and reactive pupils present Resp: Effort & Inspection: normal respiratory effort Auscultation: clear to auscultation bilaterally Cardio: Rate: regular rate Rhythm: regular rhythm GI: Palpation (GI): Soft to palpation Auscultation: normal bowel sounds : Other: CVA tenderness on the left Skin: General skin exam: no rashes or lesions noted Neuro: General: patient oriented x3 Cranial nerves: Yes Equal, round and reactive pupils present Cognition (Neuro): normal cognition Extrem: General: Yes normal to inspection and Yes no pedal edema Results Labs CBC and Chem 7: 04/27/22 05:19 04/26/22 20:42 Labs: Laboratory Results - last 24 hr 04/26/22 04/26/22 04/26/22 20:42 20:42 20:46 MCV 82.6 MCH 27.2 MCHC 33.0 RDW 13.0 Plt Count 301 MPV 10.1 Immature Gran % (Auto) 0.3 Neut % (Auto) 78.9 H Lymph % (Auto) 14.4 L Walsh % (Auto) 6.0 Eos % (Auto) 0.2 Baso % (Auto) 0.2 Lymph # (Auto) 2.5 Walsh # (Auto) 1.1 Eos # (Auto) 0.0 Baso # (Auto) 0.0 Abs Immat Gran (auto) 0.06 H Absolute Neuts (auto) 13.7 H Absolute Nucleated RBC 0.000 Nucleated RBC % (auto) 0.0 Anion Gap 11 L Estim Creat Clear Calc 79.0 Estimated GFR > 60 Random Glucose 90 Lactic Acid Calcium 9.8 Urine Color Yellow Urine Appearance Clear Urine pH 8.5 Ur Specific [place] 1.010 Urine Protein Negative Urine Glucose (UA) Negative Urine Ketones Negative Urine Blood Large (3+) H Urine Nitrite Negative Ur Leukocyte Esterase Large (3+) H Urine RBC >20 H Urine WBC 21-50 H Ur Squamous Epith Cells 3-5 Urine Bacteria None Seen Hyaline Casts 0-2 Urine Test COVID-19 ([facility]) COVID-19 Clin Com 04/26/22 04/26/2222 20:46 22:19 23:18 MCV MCH MCHC RDW Plt Count MPV Immature Gran % (Auto) Neut % (Auto) Lymph % (Auto) Walsh % (Auto) Eos % (Auto) Baso % (Auto) Lymph # (Auto) Walsh # (Auto) Eos # (Auto) Baso # (Auto) Abs Immat Gran (auto) Absolute Neuts (auto) Absolute Nucleated RBC Nucleated RBC % (auto) Anion Gap Estim Creat Clear Calc Estimated GFR Random Glucose Lactic Acid 0.6 Calcium Urine Color Urine Appearance Urine pH Ur Specific [place] Urine Protein Urine Glucose (UA) Urine Ketones Urine Blood Urine Nitrite Ur Leukocyte Esterase Urine RBC Urine WBC Ur Squamous Epith Cells Urine Bacteria Hyaline Casts Urine Test NEGATIVE COVID-19 ([facility]) Negative COVID-19 Clin Com See Note Imaging Radiologist's Impressions: Impressions Abdomen/Pelvis CT 04/26/22 22:38 IMPRESSION: A cause for the patient's left flank pain has not been found. No calculi are present. There is no evidence of pyelonephritis. However, this noncontrast CT scan does not rule out hilum nephritis. Fleischner guidelines were followed. Assessment and Plan (1) Pyelonephritis: Status: Acute (2) UTI (urinary tract infection): Status: Acute (3) Hematuria: Status: Acute Plan 27-year-old female with past medical history of hypothyroidism presents to the hospital with complaints of hematuria and urinary symptoms # pyelonephritis/UTI - has symptomatic UTI as well as left flank pain - leukocytosis, afebrile - will treat with IV antibiotics - follow cultures # hematuria - stable H&H - likely secondary to above - no evidence of calculi - patient will be treated with antibiotics but will require an outpatient follow-up to evaluate for resolution of hematuria # hypothyroidism - continue levothyroxine DVT prophylaxis: early ambulation in patient's need for IV antibiotics in the setting of pyelonephritis patient require minimal to night and patient also stay for further management and evaluation Time Spent With Patient Time: Total time managing care of this patient today ____ minutes. Quality Stroke Does the patient have a stroke diagnosis?: No VTE Prior VTE?: No VTE Risk Level:: Medical - low VTE Device Contraindication: Treatment Not Indicated VTE Drug Contraindication: Treatment Not Indicated
[2022-04-27] MEDS: Acetaminophen 325 MG TABLET 650 MG PO (01:49)
[2022-04-27] MEDS: Lactated Ringers 1,000 ML 100 ML IVCONT ×2 (01:49→17:07)
--- NOTE | 2022-04-27 03:43 | PC.NURSE ---
Addendum entered by Tawana Palomares RN 04/27/22 04:23: Report given to JOSÉ Archuleta Original Note: pt appear sleep no signs of acute distress notice, breathing equally unlabored
[2022-04-27 03:55] VITALS: BP 101/47; PULSE 89; RESP 20; O2SAT 97
--- NOTE | 2022-04-27 04:28 | PC.NURSE ---
Received report from Tawana KUMAR. Additional information needed to complete patient patient's chart. Pt resting comfortably, asleep at this time. Will update chart when the patient is awake.
[2022-04-27 05:50] LABS: Basophils Absolute Auto 0.1 X10*3/uL (0.0-0.2); Basophils Percent Auto 0.4 % (0-2); Eosinophils Percent Auto 0.3 % (0-4); Hematocrit 29.9 % (37.0-47.0); Hemoglobin 9.8 g/dl (12.0-16.0); Imm Gran Abs Auto 0.05 X10*3/uL (0.00-0.03); Imm Gran Pct Auto 0.4 % (0.0-0.4); Lymphocytes Absolute Auto 2.7 X10*3/uL (1.2-4.9); Lymphocytes Percent Auto 22.4 % (20-40); MANUAL DIFF FLAG NO; Mean Corpuscular HGB Conc 32.8 g/dl (31.0-35.0); Mean Corpuscular Hemoglobin 27.5 pg (27.0-33.0); Mean Platelet Volume 10.6 fL (9.4-12.3); Monocytes Absolute Auto 0.9 X10*3/uL (0.1-1.2); Monocytes Percent Auto 7.6 % (2-11); Neutrophils Absolute Auto 8.3 x10*3/uL (2.0-8.3); Neutrophils Percent Auto 68.9 % (45-73); Platelet Count 242 X10*3/uL (160-400); Red Blood Count 3.56 X10*6/uL (4.20-5.50); Red Cell Distribution Width 13.2 % (11.0-16.0)
[2022-04-27 06:09] VITALS: BP 100/58; PULSE 79; TEMP 36.8; O2SAT 98
[2022-04-27 06:09] LABS: Anion Gap 11 (12-20); Blood Urea Nitrogen 7 mg/dL (9-16); Calcium 8.6 mg/dL (8.4-10.2); Carbon Dioxide 22 mmol/L (22-29); Chloride 110 mmol/L (96-108); Creatinine Clr Calc Pharmacy 104.5; Estimated Glomerular Filt Rate > 60; Glucose Random 76 mg/dL (60-115); Potassium 3.8 mmol/L (3.3-5.1); Sodium 139 mmol/L (135-145)
[2022-04-27 07:54] VITALS: BP 105/61; PULSE 75; RESP 18; TEMP 37.1; O2SAT 98
--- NOTE | 2022-04-27 07:55 | PM.EVENT ---
Event Note Date of Service: 04/27/22 Event Note: Pt admitted this morning with UTI/Pyelo and hematuria likely from cystitis, continue IV Abx, add urine culture, follow culture. If hematuria persists consult urology, o/w assessment and plan per H and p from this morning. Resume levothyroxine for hypothyroidism Time Spent With Patient Time: Total time managing care of this patient today ____ minutes.
--- NOTE | 2022-04-27 08:23 | PHA.MEDREC ---
Pharmacy Consult ? Medication Reconciliation Pharmacy has reviewed the medication reconciliation completed by nursing. Patient takes 2 tablet of levotyroxine on sundays. Shy Velazco, AleksandrD
[2022-04-27] MEDS: Levothyroxine Sodium 25 MCG TABLET PO (09:25)
[2022-04-27 10:52] VITALS: BP 94/49; PULSE 75; RESP 16; TEMP 36.7; O2SAT 98
--- NOTE | 2022-04-27 11:17 | MHC.CM.PN ---
PT REPORTS SHE LIVES WITH HER , IS FULLY INDEPENDENT, AND WORKS PT HAS NO HOME SERVICES AND NO DME PT DECLINES TO COMPLETED A HCP SHE IS NOT COVID [facility] PCP: LEWIS PHILLIPS DCP: HOME NO SERVICES PT WILL DRIVE HERSELF AT DC
[2022-04-27 18:47] VITALS: BP 112/67; PULSE 82; RESP 18; TEMP 36.4; O2SAT 99
[2022-04-27 19:33] VITALS: BMI 18.5
[2022-04-27 19:45] VITALS: BP 110/65; PULSE 78; RESP 18; TEMP 36.3; O2SAT 99
[2022-04-27] MEDS: cefTRIAXone sodium 1 GM in 0.9 % Sodium Chloride 50 ML IV (20:38)
[2022-04-28 03:18] VITALS: BP 104/51; PULSE 67; RESP 16; TEMP 36.7; O2SAT 99
[2022-04-28] MEDS: Levothyroxine Sodium 25 MCG TABLET PO (05:32)
[2022-04-28] MEDS: Lactated Ringers 1,000 ML 100 ML IVCONT (05:33)
[2022-04-28 08:00] VITALS: BP 115/67; PULSE 78; RESP 18; TEMP 36.8; O2SAT 100
--- NOTE | 2022-04-28 08:31 | PM.DS ---
DS: Providers Provider Date of Service: 04/28/22 Date of admission: 04/27/22 00:04 Primary care physician: Gregg Zhang MD DS: Diagnosis Discharge Diagnosis (1) Pyelonephritis: Status: Acute (2) UTI (urinary tract infection): Status: Acute (3) Hematuria: Status: Acute DS: Summary Hospital Course Hospital Course: Chief Complaint:? hematuria ?27-year-old female with past medical history of hypothyroidism presents to the hospital with complaints of hematuria as well as back pain.? Patient reports that she has been having burning on urination for the past 2 days, she went to? work connection? on day of presentation and received antibiotics, but she? had hematuria the would not stop, as well as developed low back pain and significant headache therefore decided to come back to the ED.? Patient denies any fever, no chills, no chest pain, no shortness of breath, no abdominal pain, no lower extremity edema and no diarrhea constipation.? On arrival to the ED patient hemodynamically stable with no significant abnormal vitals Nebs are significant for WBC? count of 17.4, labs otherwise unremarkable, UA shows positive leukocyte Estrace and WBC as well as large amount of blood in urine.? Abdominal pelvic CT shows no obstruction or calculi.? ?patient started on IV antibiotics will be admitted for further management Hospital course: Patient was admitted for acute pyelonephritis and put on IV Ceftriaxone, initial WBC of 15K has come down to 8K now. Hematuria has resolved and has no flank pain or urinary symptoms at this point. Urine culture is growing gram negative yunior but sensitivity is not yet available. Given that patient is doing well on Ceftriaxone, I am transitioning to oral Ceftin 500 mg twice for total of 10 days. Time Spent with Patient Time attestation: Total time managing care of this patient today ____ minutes. Discharge coordination time: Greater than 30 minutes Quality: Safe Use of Opioids Does Pt have an Active Cancer Diagnosis on the Problem List?: No Quality: Stroke Does the patient have a stroke diagnosis?: No Physical Exam Vital Signs: Vital Signs: Last Vital Signs Temp 98.2 F 04/28/22 08:00 Pulse 78 04/28/22 08:00 Resp 18 04/28/22 08:00 BP 115/67 04/28/22 08:00 Pulse Ox 100 04/28/22 08:00 O2 Del Method 04/28/22 08:00 BMI result Body Mass Index 18.5 DS: Data Data Completed and Pending Labs on day of discharge: Preliminary micro results at discharge 04/26/22 22:19 Blood Culture - Preliminary Blood - Venous No growth after 24 hours. 04/26/22 22:19 Blood Culture - Preliminary Blood - Venous No growth after 24 hours. Discharge Plan Discharge Anticipated Discharge Date/Time: 04/28/22 08:26 Patient Disposition: Home, Self-Care Discharge Diagnosis: Pyelonephritis, Hematuria Referrals: Gregg Zhang MD [Primary Care Provider] - Veronica Fisher MD [Physician] - 2 Weeks (Hematuria) Discharge Medications: New cefuroxime axetil 500 mg tablet 500 mg PO BID 8 Days Qty: 16 0RF Continued levothyroxine [Levoxyl] 25 mcg tablet 50 mcg PO REESE levothyroxine [Synthroid] 25 mcg tablet 25 mcg PO MOTUWETHFRSA Discharge Orders: Discharge Order (Routine); Ordered 04/28/22 Ordered By: Gabe Rees Diet: Advance to usual diet Activity on Discharge: As tolerated Stand Alone Forms: Patient Portal Discharge page, Work/School Release Activity Restrictions/Additional Instructions: Drink plenty of fluids, take the 2 antibiotic cefuroxime/Macrobid as prescribed, return if persistent fever or increase flank pain or feeling sick. Care Plan Goals: Full recovery from UTI Health Concerns: Hematuria, Pyelonephritis/UTI Plan of Treatment: Take Cefuroxime as directed and follow up with your Doctor in a wee Also out of abundance of caution, follow up with aurologist Assessment: as above Patient Instructions: Kidney Infection (ED)
[2022-04-28 08:32] LABS: Hematocrit 34.2 % (37.0-47.0); Hemoglobin 10.9 g/dl (12.0-16.0); Mean Corpuscular HGB Conc 31.9 g/dl (31.0-35.0); Mean Corpuscular Hemoglobin 26.8 pg (27.0-33.0); Mean Platelet Volume 10.3 fL (9.4-12.3); Platelet Count 268 X10*3/uL (160-400); Red Blood Count 4.07 X10*6/uL (4.20-5.50); Red Cell Distribution Width 13.2 % (11.0-16.0); White Blood Count 8.3 X10*3/uL (4.8-10.8)
--- NOTE | 2022-04-28 08:41 | MHC.CM.PN ---
PATIENT IS DC HOME - SELF CARE CAR IS IN LOT. RN AWARE OF PLAN.
== END 2022-04-28 10:28 | disposition home or self-care (01) | DRG 463 ==
LOC: HO.ED 22:27 → HO.EDOVER 04-27 00:24 → HO.S3 04-27 17:27
PROVIDERS: Nurse Practitioner Family; Admitting Provider Internal Medicine; Emergency Provider Emergency Medicine; PCP Internal Medicine; Visit Provider Internal Medicine
DX: N10 Acute pyelonephritis (principal); N30.01 Acute cystitis with hematuria; E03.9 Hypothyroidism, unspecified; Z20.822 Contact with and (suspected) exposure to COVID-19; Z79.890 Hormone replacement therapy
CPT/HCPCS: 36415; 74176; 80048; 81001; 81025; 83605; 85025; 85027; 87040; 87086; 87088; 87186; 87635; 99285; J0696

== ENCOUNTER → 2022-10-11 09:57 | Outpatient (BNVA) | payer OTHER, SELFPAY | PROVIDERS: PCP Internal Medicine; Visit Provider Urology | DX: R31.0 Gross hematuria (principal); R39.15 Urgency of urination; N39.0 Urinary tract infection, site not specified | CPT/HCPCS: 51798 ==

== ENCOUNTER 2022-10-24 06:41 | Day surgery (SDC) | payer OTHER, SELFPAY ==
--- NOTE | 2022-10-23 10:17 | HO.ANESPROP2 ---
Documented by User: Gem Long NP 10/23/22 10:18 HPI - Anesthesia Eval Consult details Narrative: 27yo F for Cystoscopy Hydrodistention of Bladder,with poss biopsy PMFSH Active Problems Active Problems: All Active Problems (Updated 10/11/22 @ 10:56 by Saray Samuel) Urgency of urination (Acute) Gross hematuria (Acute) Breast pain in female (Acute) Past Medical History Medical History (Updated 10/24/22 @ 07:10 by Kamila Bridges RN) Hypothyroidism Inguinal hernia Thyroid disease Family History Family History Other No family history of coronary artery disease Surgical History Surgical History (Updated 10/24/22 @ 07:11 by Kamila Bridges RN) History of inguinal hernia repair, bilateral Hx of tonsillectomy Social History Social History Household Members: Spouse Housing: House Do you presently have visiting nurse or other home services: No Alcohol intake: never Patient Tobacco Use Status: Never used Tobacco Are you DNR?: No Advance Directives: No Advance Directives Information Provided: Yes Nutrition Risks: No Nutritional Risk FDLMP: 10/02/22 service: No Current occupational status: employed Gender identity: Female Meds Allergies Allergy/AdvReac Type Severity Reaction Status Date / Time pollen extracts Allergy Intermediate Itchy Eyes Verified 10/24/22 07:11 Home Medications Medication Instructions Recorded Confirmed Last Taken Type levothyroxine 25 mcg tablet 50 mcg PO REESE 04/27/22 10/24/22 10/24/22 History (Levoxyl) Exam Exam Date and Time: October 23, 2022 1017 Assessment and Plan Assessment Anesthesia Assessment: Chart Reviewed Documented by User: Leonor Cordova MD 10/24/22 07:44 PMFSH Past Medical History Medical History (Updated 10/24/22 @ 07:10 by Kamila Bridges RN) Hypothyroidism Inguinal hernia Thyroid disease Family History Family History Other No family history of coronary artery disease Family history of problems with anesthesia: No Surgical History Surgical History (Updated 10/24/22 @ 07:11 by Kamila Bridges RN) History of inguinal hernia repair, bilateral Hx of tonsillectomy History of Problems with Anesthesia: No Social History Social History Household Members: Spouse Housing: House Do you presently have visiting nurse or other home services: No Alcohol intake: never Patient Tobacco Use Status: Never used Tobacco Are you DNR?: No Advance Directives: No Advance Directives Information Provided: Yes Nutrition Risks: No Nutritional Risk FDLMP: 10/02/22 service: No Current occupational status: employed Gender identity: Female Meds Allergies Allergy/AdvReac Type Severity Reaction Status Date / Time pollen extracts Allergy Intermediate Itchy Eyes Verified 10/24/22 07:11 Home Medications Medication Instructions Recorded Confirmed Last Taken Type levothyroxine 25 mcg tablet 50 mcg PO REESE 04/27/22 10/24/22 10/24/22 History (Levoxyl) Exam Airway Mallampati Class: I TM Dist: >3cm Neck ROM: Full Assessment and Plan Assessment Anesthesia Assessment: Anesthesia Plan Discussed Final Anesthetic Review Family History of Problems with Anesthesia: No History of Problems with Anesthesia: No NPO: Yes ASA Class: II Final Preanesthetic Review: No Changes in Pt Med Stat, Meds/Allgs Chart Reviewed, Consent Obtained/Reviewed and Anes Risks/Benef Reviewed Patient Risk: Low Procedure Risk: Low Anesthetic Plan Anesthetic Plan: GA Disposition: Standard PACU
[2022-10-24] VITALS (7 sets, daily range): BP systolic 96–117; BP diastolic 56–74; PULSE 60–88; RESP 14–18; TEMP 36.7–36.9; O2SAT 98–100; BMI 18.9
[2022-10-24 06:57] LABS: UPreg QC Valid YES; Urine Pregnancy NEGATIVE (NEGATIVE)
[2022-10-24] MEDS: Lactated Ringers 1,000 ML 100 ML IVCONT (07:00)
--- NOTE | 2022-10-24 09:45 | MHC.SHP ---
Pre-Procedural Eval Section A Date of Service: 10/24/22 The patient is an INPATIENT: No The History & Physical has been completed within 30 days and I have reviewed it.: Yes Section B Chief Complaint: Gross hematuria Allergies: Allergies Allergy/AdvReac Type Severity Reaction Status Date / Time pollen extracts Allergy Intermediate Itchy Eyes Verified 10/24/22 07:11 Plan Diagnosis/Plan: Unchanged I have reviewed the history and physical and performed a pertinent physical examination on my patient. No changes have occurred unless specified. Cystoscopy Hydrodistension, possible biopsy. Discussed risks to include but not limited to, blood in the urine, burning with urination, urgency. Time Spent With Patient Time: Total time managing care of this patient today ____ minutes.
--- NOTE | 2022-10-24 10:33 | W.PM.OPN ---
Operative Note Operative Note Date of Service: 10/24/22 Narrative: PREOP DIAGNOSIS: Urinary urgency, microscopic hematuria POSTOP DIAGNOSIS: Urinary urgency, microscopic hematuria, Interstitial cystitis PROCEDURE: CYSTOSCOPY HYDRODISTENTION, BLADDER INSTILLATION Anethesia: General Surgeon: Dr. Veronica Fisher Details of procedure: The patient was brought into the operating room placed on the OR table in supine position. 2 g of Ancef IV. General anesthesia was administered. The patient was repositioned into lithotomy position, prepped and draped in the usual sterile fashion. Time-out was done per protocol. A 22 fr cystoscope was placed transurethrally into the bladder. Urine was drained from the bladder measuring 60 mL. The right and left ureteral orifices were visualized. The entire bladder was visualized. There were no suspicious bladder lesions seen. The bladder was filled with sterile water at 80 cm of water pressure under gravity. The bladder was distended for 1 minutes. Bladder capacity measured 550 mL. Revisualization of the bladder, noted mild to moderate glomerulations. No Juan ulcerations. The bladder was refilled with sterile water again at 80 cm of water pressure under gravity. The bladder was distended for 3 minutes. The fluid was drained from the bladder and measured 600 mL. The cystoscope was removed. 2% lidocaine urojet was passed transurethrally, Solution of (1% lidocaine plain, 15 mL, 0.5 % Marcaine 15 mL mixed with 30, 000 units of heparin concentration 5000 units per mL total of 6 mL hepaine) instilled transurethrally into the bladder. The patient was brought out of anesthesia and taken to recovery in stable condition. Complications: None Drains: none
[2022-10-24] MEDS: Phenazopyridine HCL 100 MG TABLET 200 MG PO (11:12)
[2022-10-24] MEDS: Acetaminophen 325 MG TABLET 975 MG PO (11:17)
== END 2022-10-24 12:01 | disposition home or self-care (01) ==
PROVIDERS: Nurse Practitioner; PCP Internal Medicine; Visit Provider Urology
PROC: 0T7B7ZZ Dilation of Bladder, Via Natural or Artificial Opening (ICD-10-PCS; CPT 52260; principal; 2022-10-24 08:20)
DX: N30.11 Interstitial cystitis (chronic) with hematuria (principal); N39.0 Urinary tract infection, site not specified; R39.15 Urgency of urination; E03.9 Hypothyroidism, unspecified; Z79.899 Other long term (current) drug therapy
CPT/HCPCS: 52260; 81025; J0690; J1643; J2250; J2795; J3010

== ENCOUNTER → 2022-11-13 15:37 | Outpatient (BNVA) | payer OTHER, SELFPAY | PROVIDERS: PCP Internal Medicine; Visit Provider Urology | DX: N30.10 Interstitial cystitis (chronic) without hematuria (principal) | CPT/HCPCS: 51798 ==

== ENCOUNTER 2022-12-21 08:47 | Outpatient (REF) | payer OTHER, SELFPAY ==
[2022-12-21 10:15] LABS: Free T4 (Free Thyroxine) 1.09 ng/dL (0.71-1.85); Thyroid Stimulating Hormone 0.52 uIU/mL (0.32-4.0)
[2022-12-23 05:53] LABS: Triiodothyronine T3 Free 3.7 pg/mL (2.3-4.2)
== END 2022-12-21 08:48 | disposition home or self-care (01) ==
LOC: HO.LAB 08:47
PROVIDERS: Visit Provider Internal Medicine Endocrinology, Diabetes & Metabolism
DX: E03.9 Hypothyroidism, unspecified (principal)
CPT/HCPCS: 36415; 84439; 84443; 84481

== ENCOUNTER 2023-02-12 20:28 | Emergency (ER) | payer OTHER, SELFPAY ==
--- NOTE | 2023-02-12 20:43 | ED_ITS ---
HPI - General Adult General Chief complaint: Skin/Abscess/Foreign Body Stated complaint: vaginal infection Time Seen by Provider: 02/12/23 23:11 Source: patient Mode of arrival: ambulatory Limitations: no limitations History of Present Illness HPI narrative: Patient is a 27-year-old female presents emergency department for evaluation of a painful lump to the left upper labia. She reports a history of folliculitis to this region approximately 1 year ago and it began the same approximately 4 days ago. It has increased in size and has become painful more swollen and red. She denies fevers or chills. Denies concern for sexually transmitted infections. Denies any trauma to this region. She took 2 doses of amoxicillin 500 mg today (which she obtained from [place] Denies any additional skin rashes or lesions. Denies any abnormal vaginal discharge. Denies possibility of . Denies dysuria, urinary frequency/urgency/hesitancy. Related Data Home Medications Medication Instructions Recorded Confirmed levothyroxine 25 mcg tablet 50 mcg PO REESE 04/27/22 10/24/22 (Levoxyl) Previous Rx's Medication Instructions Recorded oxycodone-acetaminophen 5 mg-325 1 tab PO Q6H PRN pain (scale score 10/24/22 mg tablet (Percocet) 7-10) #4 tabs phenazopyridine 200 mg tablet 200 mg PO TID for urinary burning 10/24/22 (Pyridium) #30 tabs amoxicillin 875 mg-potassium 1 tab PO BID #12 tabs 02/13/23 clavulanate 125 mg tablet Allergies Allergy/AdvReac Type Severity Reaction Status Date / Time pollen extracts Allergy Intermediate Itchy Eyes Verified 10/24/22 07:11 Review of Systems Review of Systems: Yes all other systems are reviewed and are negative [facility] Past Medical History Attestation statement: The following information was validated with the patient. Source: old records reviewed Medical History Inguinal hernia Hypothyroidism Thyroid disease Surgical History Hx of tonsillectomy History of inguinal hernia repair, bilateral Family History Family History Other No family history of coronary artery disease Social History Social History Household Members: Spouse Housing: House Do you presently have visiting nurse or other home services: No Alcohol intake: never Patient Tobacco Use Status: Never used Tobacco Advance Directives: No Advance Directives Information Provided: Yes service: No Current occupational status: employed Gender identity: Female Physical Exam ED Vital Signs: Vital Signs - 24 hr 02/12/23 20:46 02/12/23 22:41 Temperature 98.2 F 98.1 F Pulse Rate 95 90 Respiratory Rate 20 20 Blood Pressure 132/83 130/81 Pulse Oximetry 98 98 Oxygen Delivery Method Room Air Room Air BMI result Body Mass Index 16.7 Appearance: Alert.?Oriented to person, place and time. No acute distress.?Normal affect. Neck: Normal inspection.? Neck supple.?? CVS: Heart sounds normal. Normal heart rate and rhythm.? Pulses normal.?? Respiratory: No respiratory distress.? Lung sounds clear to auscultation bilaterally?? Abdomen: Soft and non-tender. Normoactive bowel sounds. Genital: Performed with ED net developer architect JOSÉ Sanchez; left upper labia with erythema and warmth upon palpation area of induration with white central fluctuance consistent with abscess Skin: Skin warm and dry.? Normal skin color.? ?? Extremities: No lower extremity edema.? Neuro: Moves all extremities spontaneously. Sensation intact bilaterally. Ambulates with normal steady gait. Course Course Course Narrative: This is an RME: Additional HPI, ROS, PE not included below will be deferred to primary provider. This is a [id number] presenting to the emergency department with a complaint of ?left labial abscess vs bartholin cyst x 4 days. Reports hx of folliculitis in the area. Now reporting increasing swelling, pain. No fevers or chills. Took two doses of amoxicillin yesterday and today without any relief. She has this over the counter [place] at [place]. Unable to visualize area given limited privacy in triage. Plan: Further ER evaluation/physical examination needed. Procedures Abscess I/D Site: other (labia) Side (if applicable): left Local Anesthetic: lidocaine 1% Amount of anesthesia used (mL): 2 Technique: incised with blade Irrigation: Yes Packing used?: none Medical Decision Making Medical Decision Making MDM Narrative: Patient is a 27-year-old female who presents emergency department for evaluation of a painful lump to the left labia; history and physical examination is consistent with abscess upon evaluation. No systemic toxicity, and patient is well-appearing. There is surrounding cellulitis. Not consistent with n ecrotizing fasciitis, myositis, DVT, osteomyelitis. patient is now status post incision and drainage of abscess and tolerated the procedure well. No complications. No labs or imaging indicated at this time. Will discharge home with course of oral antibiotics and symptomatic treatment instructions. Discussed reasons to return to the emergency department, and follow-up with primary care provider. Patient agreeable with plan of care. Differential Diagnosis Differential Diagnoses: The differential diagnosis associated with the pres entation includes (As noted above) Independent Historian Clinical information obtained from an independent historian. History obtained from or confirmed by: Spouse (Present at bedside who confirms history) Prescription Management I considered prescription management with: Antibiotic Discharge Plan Discharge Clinical Impression: Abscess of labia Patient Disposition: Home, Self-Care Instructions: Abscess Follow-up (ED), Incision and Drainage (ED) Prescriptions: New amoxicillin-pot clavulanate 875-125 mg tablet 1 tab PO BID Qty: 12 0RF No Action levothyroxine [Levoxyl] 25 mcg tablet 50 mcg PO REESE phenazopyridine [Pyridium] 200 mg tablet 200 mg PO TID Qty: 30 0RF Rx Instructions: take with food oxycodone-acetaminophen [Percocet] 5-325 mg tablet 1 tab PO Q6H PRN (Reason: pain (scale score 7-10)) Qty: 4 0RF Rx Instructions: Partial Fill upon patient request. Referrals: Physician,None [Primary Care Provider] -
[2023-02-12 20:46] VITALS: BP 132/83; PULSE 95; RESP 20; TEMP 36.8; O2SAT 98; BMI 16.7
[2023-02-12 22:41] VITALS: BP 130/81; PULSE 90; RESP 20; TEMP 36.7; O2SAT 98
[2023-02-13] MEDS: Lidocaine HCl 1 % MPF 5 ML VIAL SUBCUT (00:10)
[2023-02-13 00:43] VITALS: BP 131/81; PULSE 80; RESP 16; TEMP 36.4; O2SAT 98
--- NOTE | 2023-02-13 01:03 | PC.NURSE ---
pt a&o, no sob or chest pain, incision cleaned by provider, reviewed discharge instruction with pt, pt verbalized understanding.
== END 2023-02-13 01:05 | disposition home or self-care (01) ==
PROVIDERS: Emergency Provider Emergency Medicine
DX: N76.4 Abscess of vulva (principal)
CPT/HCPCS: 56405; 99284

== ENCOUNTER 2023-02-21 08:57 | Outpatient (REF) | payer OTHER, SELFPAY ==
[2023-02-21 11:08] LABS: Ferritin 32 ng/mL (10-122); Free T4 (Free Thyroxine) 1.02 ng/dL (0.71-1.85); Thyroid Stimulating Hormone 0.01 uIU/mL (0.32-4.0); Vitamin D 25-OH Total 30.8 ng/mL (>30)
[2023-02-21 11:13] LABS: Vitamin B12 669 pg/mL (200-900)
[2023-02-22 19:08] LABS: DHEA Sulfate 215 mcg/dL (14-349)
[2023-02-22 20:38] LABS: Triiodothyronine T3 Free 3.7 pg/mL (2.3-4.2)
[2023-02-25 14:14] LABS: Testosterone, Free 1.5 pg/mL (0.1-6.4); Testosterone, Total 27 ng/dL (2-45)
== END 2023-02-21 08:58 | disposition home or self-care (01) ==
LOC: HO.LAB 08:57
PROVIDERS: Visit Provider Internal Medicine Endocrinology, Diabetes & Metabolism
DX: E03.9 Hypothyroidism, unspecified (principal); L65.9 Nonscarring hair loss, unspecified; E55.9 Vitamin D deficiency, unspecified
CPT/HCPCS: 36415; 82306; 82607; 82627; 82728; 82746; 84402; 84403; 84439; 84443; 84481

== ENCOUNTER 2023-02-26 14:02 | Outpatient (REF) | payer OTHER, SELFPAY ==
[2023-02-26 14:38] LABS: MANUAL DIFF FLAG NO
[2023-02-26 15:04] LABS: Basophils Percent Auto 0.3 % (0-2); Eosinophils Percent Auto 0.4 % (0-4); Hematocrit 37.5 % (37.0-47.0); Hemoglobin 12.3 g/dl (12.0-16.0); Imm Gran Abs Auto 0.02 X10*3/uL (0.00-0.03); Imm Gran Pct Auto 0.2 % (0.0-0.4); Lymphocytes Absolute Auto 2.5 X10*3/uL (1.2-4.9); Lymphocytes Percent Auto 27.7 % (20-40); Mean Corpuscular HGB Conc 32.8 g/dl (31.0-35.0); Mean Corpuscular Hemoglobin 26.7 pg (27.0-33.0); Mean Corpuscular Volume 81.3 fL (80.0-98.0); Mean Platelet Volume 10.4 fL (9.4-12.3); Monocytes Absolute Auto 0.7 X10*3/uL (0.1-1.2); Neutrophils Absolute Auto 5.8 x10*3/uL (2.0-8.3); Neutrophils Percent Auto 63.4 % (45-73); Platelet Count 308 X10*3/uL (160-400); Red Blood Count 4.61 X10*6/uL (4.20-5.50); Red Cell Distribution Width 12.4 % (11.0-16.0); White Blood Count 9.1 X10*3/uL (4.8-10.8)
[2023-02-26 15:53] LABS: Estimated Average Glucose 94 mg/dL; Hemoglobin A1c % 4.9 % (<6.0)
[2023-02-26 16:00] LABS: Thyroid Stimulating Hormone 0.05 uIU/mL (0.32-4.0)
[2023-02-26 18:23] LABS: CT PCR NOT DETECTED (Not Detect.); NG PCR NOT DETECTED (Not Detect.)
[2023-02-27 07:39] LABS: HBsAGNum1 0.36 S/CO (0.00-0.99); HIV AB/AG Nonreactive (Nonreactive); HIV Num 1 0.04 S/CO (0.00-0.99); Hepatitis B Surface Antigen Negative (Negative); Syphilis Screen Nonreactive (Nonreactive); ~HepC Num1 0.07 S/CO (0.00-0.79); ~Hepatitis C Antibody Nonreactive (Nonreactive)
[2023-02-27 08:59] LABS: Follicle Stimulating Hormone 7.2 mIU/mL; Lutenizing Hormone 5.9 mIU/mL; Prolactin 6.6 ng/mL
[2023-02-28 19:48] LABS: Anti-Mullerian Hormone-Female 2.53 ng/mL (0.69-13.39)
[2023-03-02 18:09] LABS: Rubella IgG Antibody 6.58 Index
[2023-03-03 23:24] LABS: Estradiol Ultra Sensitive 64 pg/mL
== END 2023-02-26 14:03 | disposition home or self-care (01) ==
LOC: HO.LAB 14:02
PROVIDERS: Visit Provider Obstetrics & Gynecology Reproductive Endocrinology
DX: Z31.41 Encounter for fertility testing (principal); Z20.2 Contact with and (suspected) exposure to infections with a predominantly sexual mode of transmission
CPT/HCPCS: 0353U; 82306; 82670; 83001; 83002; 83036; 83520; 84146; 84443; 85025; 86762; 86780; 86803; 87340; 87389

== ENCOUNTER 2023-04-23 14:41 | Outpatient (REF) | payer OTHER, SELFPAY ==
[2023-04-28 22:59] LABS: Estradiol Ultra Sensitive 63 pg/mL
== END 2023-04-23 14:42 | disposition home or self-care (01) ==
LOC: HO.LAB 14:41
PROVIDERS: Visit Provider Obstetrics & Gynecology Reproductive Endocrinology
DX: Z31.81 Encounter for male factor infertility in female patient (principal)
CPT/HCPCS: 36415; 82670; 86850

== ENCOUNTER 2023-05-18 12:01 | Outpatient (REF) | payer OTHER, SELFPAY ==
[2023-05-18 13:40] LABS: Free T4 (Free Thyroxine) 0.87 ng/dL (0.71-1.85); Thyroid Stimulating Hormone 2.24 uIU/mL (0.32-4.0)
[2023-05-21 03:03] LABS: Triiodothyronine T3 Free 3.1 pg/mL (2.3-4.2)
== END 2023-05-18 12:02 | disposition home or self-care (01) ==
LOC: HO.LAB 12:01
PROVIDERS: Visit Provider Internal Medicine Endocrinology, Diabetes & Metabolism
DX: E03.9 Hypothyroidism, unspecified (principal)
CPT/HCPCS: 36415; 84439; 84443; 84481

== ENCOUNTER 2023-07-03 22:51 | Emergency (ER) | payer OTHER, SELFPAY ==
--- NOTE | ~2023-07-03 | US_ITS ---
EXAMINATION: US VENOUS ULTRASOUND WITH DOPPLER LOWER EXTREMITY, BILATERAL CLINICAL INFORMATION: Numbness in the bilateral lower extremities. Pain. COMPARISON: None available. TECHNIQUE: Ultrasound of the deep veins is performed from the hip to the calf with compression sonography and color and pulse Doppler assessment. Spectral analysis with color-flow imaging is performed. FINDINGS: RIGHT: There is normal venous compression and respiratory variation and augmented flow. The visualized common femoral vein, superficial femoral vein, profunda femoral vein, popliteal vein, and the trifurcation region shows no evidence of deep venous thrombosis. There is no significant popliteal fossa cyst. LEFT: There is normal venous compression and respiratory variation and augmented flow. The visualized common femoral vein, superficial femoral vein, profunda femoral vein, popliteal vein, and the trifurcation region shows no evidence of deep venous thrombosis. There is no significant popliteal fossa cyst. If the patient's symptoms persist, followup ultrasound in 5 days 7 days might be of value to exclude proximal propagation from a non-visualized calf vein. US/US venous duplex LE BI IMPRESSION: No DVT demonstrated in the bilateral lower extremities.
[2023-07-03 23:05] VITALS: BP 125/78; PULSE 94; RESP 18; TEMP 36.6; O2SAT 98
[2023-07-03 23:21] LABS: Basophils Percent Auto 0.3 % (0-2); Eosinophils Percent Auto 0.2 % (0-4); Hematocrit 36.1 % (37.0-47.0); Hemoglobin 12.3 g/dl (12.0-16.0); Imm Gran Abs Auto 0.04 X10*3/uL (0.00-0.03); Imm Gran Pct Auto 0.3 % (0.0-0.4); Lymphocytes Absolute Auto 1.9 X10*3/uL (1.2-4.9); Lymphocytes Percent Auto 12.4 % (20-40); MANUAL DIFF FLAG SCAN; Mean Corpuscular HGB Conc 34.1 g/dl (31.0-35.0); Mean Corpuscular Volume 79.2 fL (80.0-98.0); Mean Platelet Volume 9.7 fL (9.4-12.3); Monocytes Absolute Auto 1.6 X10*3/uL (0.1-1.2); Monocytes Percent Auto 10.1 % (2-11); Neutrophils Percent Auto 76.7 % (45-73); Platelet Count 325 X10*3/uL (160-400); Red Blood Count 4.56 X10*6/uL (4.20-5.50); SCAN SMEAR FLAG 1; White Blood Count 15.6 X10*3/uL (4.8-10.8)
[2023-07-03 23:37] LABS: Alanine Aminotransferase 8 U/L (0-31); Albumin Level 4.3 g/dL (3.5-5.0); Alkaline Phosphatase 50 U/L (39-117); Anion Gap 16 (12-20); Aspartate Amino Transferase 14 U/L (5-31); Bilirubin Direct 0.2 mg/dL (0.0-0.5); Bilirubin Total 0.3 mg/dL (0.0-1.0); Blood Urea Nitrogen 11 mg/dL (9-16); Calcium 9.7 mg/dL (8.4-10.2); Carbon Dioxide 22 mmol/L (22-29); Chloride 105 mmol/L (96-108); Creatinine Clr Calc Pharmacy 88.7; Estimated Glomerular Filt Rate > 60; Glucose Random 82 mg/dL (60-115); Potassium 4.1 mmol/L (3.3-5.1); Sodium 139 mmol/L (135-145); Total Protein 7.8 g/dL (6.5-8.0)
[2023-07-03 23:39] LABS: SLIDE REVIEW VERIFIED
== END 2023-07-04 05:34 | disposition left against medical advice (07) ==
PROVIDERS: Emergency Medicine; Emergency Provider Emergency Medicine
DX: M79.662 Pain in left lower leg (principal); M79.661 Pain in right lower leg; R20.0 Anesthesia of skin; R10.2 Pelvic and perineal pain; Z53.21 Procedure and treatment not carried out due to patient leaving prior to being seen by health care provider
CPT/HCPCS: 36415; 80053; 82248; 85025; 93970; 99281; 99284

== ENCOUNTER 2023-07-18 14:11 | Outpatient (REF) | payer OTHER, SELFPAY | END 2023-07-18 14:12 | disposition home or self-care (01) | LOC: HO.LAB 14:11 | PROVIDERS: Visit Provider Nurse Practitioner Primary Care | DX: Z13.89 Encounter for screening for other disorder (principal) ==

== ENCOUNTER 2023-07-19 09:12 | Outpatient (REF) | payer OTHER, SELFPAY ==
[2023-07-19 09:34] LABS: MANUAL DIFF FLAG NO
[2023-07-19 09:41] LABS: Basophils Percent Auto 0.5 % (0-2); Eosinophils Absolute Auto 0.1 X10*3/uL (0.0-0.4); Eosinophils Percent Auto 0.9 % (0-4); Hematocrit 36.6 % (37.0-47.0); Hemoglobin 12.1 g/dl (12.0-16.0); Imm Gran Abs Auto 0.01 X10*3/uL (0.00-0.03); Imm Gran Pct Auto 0.2 % (0.0-0.4); Lymphocytes Absolute Auto 1.7 X10*3/uL (1.2-4.9); Lymphocytes Percent Auto 26.1 % (20-40); Mean Corpuscular HGB Conc 33.1 g/dl (31.0-35.0); Mean Corpuscular Hemoglobin 26.8 pg (27.0-33.0); Mean Corpuscular Volume 81.2 fL (80.0-98.0); Mean Platelet Volume 9.9 fL (9.4-12.3); Monocytes Absolute Auto 0.6 X10*3/uL (0.1-1.2); Monocytes Percent Auto 8.7 % (2-11); Neutrophils Absolute Auto 4.2 x10*3/uL (2.0-8.3); Neutrophils Percent Auto 63.6 % (45-73); Platelet Count 285 X10*3/uL (160-400); Red Blood Count 4.51 X10*6/uL (4.20-5.50); Red Cell Distribution Width 13.2 % (11.0-16.0); White Blood Count 6.6 X10*3/uL (4.8-10.8)
[2023-07-19 10:32] LABS: Appearance Urine Clear; Color Urine Yellow; Glucose Urine UA Negative (Negative); Leukocyte Esterase Urine Trace (Negative); Nitrite Urine Negative (Negative); PH 8.5 (5.0-9.0); UMIC TRIGGER UA YES; Urine Blood Negative (Negative); Urine Ketones Negative (Negative); Urine Protein Negative (Neg-Trace)
[2023-07-19 10:39] LABS: Bacteria Urine None Seen (None Seen); Hyaline Casts Urine 0-2 /LPF (0-2); RBC Urine 0-2 /HPF (0-2); Squamous Epithelial Cell Urine 0-2 /HPF (0-2); WBC Urine 0-5 /HPF (0-5)
[2023-07-19 10:44] LABS: Alanine Aminotransferase 10 U/L (0-31); Albumin Level 4.2 g/dL (3.5-5.0); Alkaline Phosphatase 47 U/L (39-117); Anion Gap 0 (12-20); Aspartate Amino Transferase 14 U/L (5-31); Bilirubin Total 0.7 mg/dL (0.0-1.0); Blood Urea Nitrogen 11 mg/dL (9-16); Calcium 9.2 mg/dL (8.4-10.2); Carbon Dioxide 36 mmol/L (22-29); Chloride 107 mmol/L (96-108); Cholesterol 221 mg/dL (<200); Estimated Glomerular Filt Rate > 60; Glucose Random 80 mg/dL (60-115); HDL Cholesterol 51 mg/dL (>40); Iron 115 mcg/dL (30-160); LDL Cholesterol Calculated 154 mg/dL (<100); Percent Iron Saturation 42 % (15-50); Potassium 4.1 mmol/L (3.3-5.1); Sodium 139 mmol/L (135-145); Total Iron Binding Capacity 275 mcg/dL (228-428); Total Protein 7.1 g/dL (6.5-8.0); Triglycerides 80 mg/dL (<150); Unsaturated Iron Binding 160 ug/dL
[2023-07-19 11:01] LABS: Ferritin 48 ng/mL (10-122)
[2023-07-19 11:34] LABS: Folate 12.6 ng/mL (> or = 4.0); Vitamin B12 770 pg/mL (200-900)
[2023-07-19 13:34] LABS: Reflex LDLD? No
== END 2023-07-19 09:13 | disposition home or self-care (01) ==
LOC: HO.LAB 09:12
PROVIDERS: Visit Provider Nurse Practitioner Primary Care
DX: Z00.00 Encounter for general adult medical examination without abnormal findings (principal); Z13.6 Encounter for screening for cardiovascular disorders; D72.829 Elevated white blood cell count, unspecified; D64.9 Anemia, unspecified; G62.9 Polyneuropathy, unspecified
CPT/HCPCS: 36415; 80053; 80061; 81001; 82607; 82728; 82746; 83540; 85025

== ENCOUNTER 2025-01-03 03:36 | Emergency (ER) | payer BC, SELFPAY ==
[2025-01-03 03:41] VITALS: BP 139/87; PULSE 72; RESP 18; TEMP 36.6; O2SAT 100; BMI 20.4
--- OUTSIDE RECORDS SUMMARY | 2025-01-03 04:03 | XMS_ITS ---
Author Name [facility] Organization Unknown Results Test Name/Text Value Interpretation Date Range Source TSH SerPl-aCnc 3.22 mIU/L Normal 08/16/[address] [facility] Trigl SerPl-mCnc 81.0 mg/dL Normal 08/16/2024 - 150 Q [facility] HDLc SerPl-mCnc 62.0 mg/dL Normal 08/16/2024 - QU EST LDLc SerPl Calc-mCnc 129.0 mg/dL (calc) Above high normal 08/16/2024 [facility] NonHDLc SerPl-mCnc 147.0 mg/dL (calc) Above high normal 09/2024 - 130 [facility] Cholest SerPl-mCnc 209.0 mg/dL Above high normal 08/16/2024 - 200 [facility] Cholest/HDLc SerPl 3.4 (calc) Normal 08/16/2024 - 5 [facility] Basophils NFr Bld Auto 0.6 % Normal 08/16/2024 [facility] Platelet # Bld Auto 286.0 Thousand/uL Normal 08/16/2024 140 - 400 [facility] Lymphocytes # Bld Auto 2151.0 cells/uL Normal 08/16/2024 850 - 3900 [facility] Hct VFr Bld Auto 40.8 % Normal 08/16/2024 35 - 45 [facility] RDW RBC Auto 12.6 % Normal 08/16/2024 11 - 15 [facility] Hgb Bld-mCnc 12.8 g/dL Normal 08/16/2024 11.7 - 15.5 [facility] Monocytes # Bld Auto 583.0 cells/uL Normal 08/16/2024 200 - 950 [facility] Eosinophil NFr Bld Auto 1.0 % Normal 08/16/2024 [facility] PMV Bld Sam-Gonzales 11.1 fL Normal 08/16/2024 7.5 - 12.5 [facility] RBC # Bld Auto 4.69 Million/uL Normal 08/16/2024 3.8 - 5. 1 [facility] Neutrophils # Bld Auto 3859.0 cells/uL Normal 08/16/2024 1500 - 7800 [facility] Monocytes NFr Bld Auto 8.7 % Normal 08/16/2024 [facility] Neutrophils NFr Bld Auto 57.6 % Normal 08/16/2024 [facility] MCHC RBC Auto-EntMCnc 31.4 g/dL Below low normal 08/16/2024 32 - 36 [facility] Eosinophil # Bld Auto 67.0 cells/uL Normal 08/16/2024 15 - 500 [facility] MCH RBC Qn Auto 27.3 pg Normal 08/16/2024 27 - [address] RBC Auto 87.0 fL Normal 08/16/2024 80 - 100 [facility] WBC # Bld Auto 6.7 Thousand/uL Normal 08/16/2024 3.8 - 10 .8 [facility] Basophils # Bld Auto 40.0 cells/uL Normal 08/16/2024 0 - 200 [facility] Lymphocytes NFr Bld Auto 32.1 % Normal 08/16/2024 [facility] Creat SerPl-mCnc 0.7 mg/dL Normal 08/16/2024 0.5 - 0.97 Q [facility] ALT SerPl-cCnc 9.0 U/L Normal 08/16/2024 6 - 29 [facility] Sodium SerPl-sCnc 137.0 mmol/L Normal 08/16/2024 135 - 14 6 [facility] Chloride SerPl-sCnc 105.0 mmol/L Normal 08/16/2024 98 - 110 [facility] AST SerPl-cCnc 14.0 U/L Normal 08/16/2024 10 - 30 [facility] Potassium SerPl-sCnc 4.9 mmol/L Normal 08/16/2024 3.5 - 5.3 [facility] ALP SerPl-cCnc 37.0 U/L Normal 08/16/2024 31 - 125 [facility] BUN/Creat SerPl SEE NOTE: Normal 08/16/2024 6 - [address] Glucose SerPl-mCnc 80.0 mg/dL Normal 08/16/2024 65 - 99 [facility] Albumin/Glob SerPl 1.9 (calc) Normal 08/16/2024 1 - 2.5 [facility] CO2 SerPl-sCnc 26.0 mmol/L Normal 08/16/2024 20 - 32 [facility] Calcium SerPl-mCnc 9.5 mg/dL Normal 08/16/2024 8.6 - 10.2 [facility] Bilirub SerPl-mCnc 0.5 mg/dL Normal 08/16/2024 0.2 - 1.2 [facility] eGFRcr SerPlBld CKD-EPI 2020 119.0 mL/min/1.73m2 Normal 08/16/2024 - [facility] BUN SerPl-mCnc 10.0 mg/dL Normal 08/16/2024 7 - [address] Globulin Ser Calc-mCnc 2.5 g/dL (calc) Normal 08/16/2024 1.9 - 3.7 [facility] Albumin SerPl-mCnc 4.7 g/dL Normal 08/16/2024 3.6 - 5.1 [facility] Prot SerPl-mCnc 7.2 g/dL Normal 08/16/2024 6.1 - 8.[address] [facility] AP CLINICAL INFORMATION Polyp, and hx of chronic endometritis Normal 02/06/2024 [facility] CLINICAL INFORMATION Rule out endometritis; test of cure Normal 05/11/2023 [facility] History of Medication Use Medication Directions Dispensed Refills Start Date End Date Stat us Levoxyl 25 mcg tablet TAKE 1 TABLET BY MOUTH EVERY OTHER DAY 4 completed phenazopyridine 200 mg tablet TAKE 1 TABLET ORALLY 3 TIMES A DAY FOR FOR URINARY BURNING TAKE WITH FOOD 4 completed multivitamin with folic acid (THERAGRAN) 400 mcg tablet Take 1 tablet by mouth in the morning. active Allergies Allergen Reaction Severity Comment Documented Date Source Statu s PO[facility] EXTRACT ITCHING 05/25/[address] [facility] POLLEN EXTRACTS [facility] active Problems Problem Status Onset Date Problem Type Date of Resoluti on Source Infertile active 2023-10-02 ProblemAct [facility] Chronic interstitial cystitis active 2023-10-02 ProblemAct [facility] Vitamin D deficiency, unspecified active 2023-01-18 ProblemAct [facility] Acquired hypothyroidism active 2023-07-12 ProblemAct 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 [facility], [facility] 10/11/2023 Ambulatory no current diagnosis no current diagnosis [facility], [facility] 10/02/2023 Ambulatory Elevated white blood cell count, unspecified Elevated white blood cell count, unspecified [facility] 07/12/2023 Care Team Organization Name Specialty Phone Email Start Date End Da te [facility], [facility] 10/02/2023 [facility], [facility] 10/02/2023 [facility] 07/12/2023 08/27/2024 [facility] 07/12/2023 [facility] 07/05/2023 [facility]
--- OUTSIDE RECORDS SUMMARY | 2025-01-03 04:03 | XMS_ITS | Clinical Summary ---
Author Organization [facility] Address [address] [place] [address] Care Team Providers Care Proof Plate Maker Name Role Phone Nuzhat Timmons APRN Primary Care Provider + Jillian Buckley MD Unavailable [phone] Nuzhat Timmons APRN Unavailable [phone] Allergies Active Allergy Reactions Criticality Noted Date Comments Pollen Extract Itching Low 05/25/2016 Medications Iodine 2 % Tincture Take by mouth once a week. Active Active Problems Problem Noted Date Diagnosed Date Acquired hypothyroidism 07/24/2024 Overview (07/24/2024): Hyperthyroid Spring 2019 on 50 mcg daily, mildly hypothyroid off of rx TPO/TSH receptor antibody negative Chronic interstitial cystitis 10/02/2023 Acquired hypothyroidism 07/12/2023 07/12/19 24 Overview (07/12/2023): Hyperthyroid Spring 2019 on 50 mcg daily, mildly hypothyroid off of rx TPO/TSH receptor antibody negative Last Assessment & Plan: Clinically & biochemically euthyroid on a very low dose of LT4 (25 mcg every other day). She would like to see if she can get off of rx. Will hold rx & repeat labs in 4-6 weeks. To hold biotin for 5 days prior to labs. If TSH remains < 2.5 can stay off of rx. If goes above that would advise she resume rx d/t upcoming IVF. Discussed target TSH for . Also advised she double check w/ repro/endo to make sure they are ok w/ supplements she is taking w/ . To call/message me via portal if hasn't heard from me with results within 1-2 weeks. 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 Utilities Answer Date Recorded In the past 12 months has th e electric, gas, oil, or water company threatened to shut off services in your home? No 07/22/2024 Social Connection and Isolation Panel [NHANES] A nswer Date Recorded In a typical week, how many times do you talk on the phone with family, friends, or neighbors? Three times a week 07/22/2024 Frequency of Social Gatherin gs with Friends and Family Not on file 07/22/2024 Attends Gnosticism Services Not on file 07/22 Active Member of Clubs or Organizations Not on f ile 07/22/2024 Attends Club or Organization Meetings Not on sandra e 07/22/2024 Marital Status Not on file 07/22/2024 AUDIT-C Answer Date Recorded Q1: How often do you have a drink containing alc ohol? Never 07/22/2024 Average Number of Drinks Not on file 025 Frequency of Binge Drinking Not on file 07/12 PHQ-2 Answer Date Recorded PHQ-2 Total Score 0 07/22/2024 Hunger Vital Sign Answer Date Recorded Within the past 12 months, y ou worried that your food would run out before you got the money to buy more. Never true 07/23/19 25 Within the past 12 months, t he food you bought just didn't last and you didn't have money to get more. Never true 07/22/2024 PRAPARE - Transportation Answer Date Re corded In the past 12 months, has l ack of transportation kept you from medical appointments or from getting medications? No 07/12 In the past 12 months, has l ack of transportation kept you from meetings, work, or from getting things needed for daily living? No 07/22/2024 Housing Stability Vital Sign Answer Charly e Recorded In the last 12 months, was t here a time when you were not able to pay the mortgage or rent on time? No 07/22/2024 In the past 12 months, how m any times have you moved where you were living? 0 07/22/2024 At any time in the past 12 m [facility], were you homeless or living in a half-way (including now)? No 07/22/2024 Physical Activity Answer Date Recorded On average, how many days pe r week do you engage in moderate to strenuous exercise (like a brisk walk)? 1 day 07/22/2024 On average, how many minutes do you exercise per day at this level? 20 min 07/22/2024 Education Answer Date Recorded What is the highest level of school you have completed or the highest degree you have received? Bachelor's degree (e.g., BA, AB, BS) 07/22/2024 Comments Unknown Sex and Gender Information Value Date Recorded Sex Assigned at Female 07/22/2024 4:05 PM EDT Legal Sex Female 11:57 AM EDT Gender Identity Not on file Sexual Orientation Not on file Last Filed Vital Signs Vital Sign Reading Time Taken Comments Blood Pressure 128/80 07/24/2024 9:29 AM EDT Pulse 88 07/24/2024 9:29 AM EDT Temperature 36.4 C (97.5 F) 07/24/2024 9:29 AM EDT Respiratory Rate 17 07/24/2024 9:29 AM EDT Oxygen Saturation 99% 07/24/2024 9:29 AM EDT Inhaled Oxygen Concentration - - Weight 54.6 kg (120 lb 6.4 oz) 07/24/2024 9:29 A M EDT Height 160 cm (5' 3 ) 07/24/2024 9:29 AM EDT Body Mass Index 21.33 07/24/2024 9:29 AM EDT Plan of Treatment Health Maintenance Due Date Last Done Comments Hepatitis C Virus Screening 1994 HIV Screening 2007 DTaP/Tdap/Td Vaccines (1 - Tdap) 2013 Hepatitis B Vaccines (1 of 3 - 19+ 3-dose series) 2013 HPV Vaccines (1 - 3-dose SCDM series) 2021 Pap Smear (Ages 21-65) 10/01/2026 10/02/2023 Physical 07/25/2027 07/24/2024, 07/12/2023 COVID-19 Vaccine Discontinued Influenza Vaccine Discontinued Pneumococcal Vaccine: Pediatric (0-5 Years) and At-Risk Patients (6 to 49 Years) Aged Out No longer eligible b ased on patient's age to complete this topic Procedures Procedure Name Priority Date/Time Associated Diagnosis Comments THINPREP PAP TEST (AUTOMATIC TOE LASTER) WITH HPV REFLEX Routine 10/02/2023 10:47 AM EDT from Last 3 Months or Most Recently Relevant to Health Maintenance Results * ThinPrep Pap Test (Blade Groover) with HPV Reflex (10/02/2023 10:47 AM EDT) Clinical Information [facility] Comment:None given LMP: [facility] Comment:NONE GIVEN Previous PAP: [facility] Comment:NONE GIVEN Previous Biopsy [facility] Comment:NONE GIVEN Source: [facility] Comment:Cervix, Endocervix Statement of Adequacy: [facility] Comment: Satisfactory for evaluation. Endocervical/transformation zone component present. Interpretation/Resu lt: [facility] Comment: Cytology Results: Negative for intraepithelial lesion or malignancy. Comment: [facility] Comment: This Pap test has been evaluated with computer assisted technology. Journeyman Mechanic: [facility] Comment: RK, CT(ASCP) CT screening location: [address] [address] Comment [facility] Comment: EXPLANATORY NOTE: The Pap is a screening test for cervical cancer. It is not a diagnostic test and is subject to false negative and false positive results. It is most reliable when a satisfactory sample, regularly obtained, is submitted with relevant clinical findings and history, and when the Pap result is evaluated along with historic and current clinical information. 10/02/2023 10:4 7 AM EDT 10/04/2023 1:34 AM EDT Narrative [facility] - 10/04/2023 4:24 PM EDT [id number] NG us Digna Thompson MD LAB AMB PATH/CYTO ORDERABLES Final Result [facility] [address] [facility] [address], [place] [address] from Last 3 Months or Most Recently Relevant to Health Maintenance Insurance [employer] [place] [employer] [facility] - O Care Teams Proof Plate Maker Relationship Specialty Start Date End Date Nuzhat Timmons APRN [address] [place] [address] PCP - General Internal Medicine 07/12/23 Nuzhat Timmons APRN [address] [place] [address] PCP - [place] Commercial Attributed 09/12/23 Jillian Buckley MD [address] [place] [id number] Endocrinology 07/12/23
--- OUTSIDE RECORDS SUMMARY | 2025-01-03 04:03 | XMS_ITS | Clinical Summary ---
Author Organization [facility] Address [address] [place] [id number] Care Team Providers Care Disintegrator Operator Name Role Phone Pcp, No MD Primary Care Provider Unavailabl e Allergies No known active allergies Medications IODINE ORAL Take by mouth. Active flaxseed oiL oil Act pratibha multivitamin with folic acid (THERAGRAN) 400 mcg tablet Take 1 tablet by mouth in the morning. Active SELENIUM ORAL Take by mouth. Active Social History Tobacco Use Types Packs/Day Years Used Date Smoking Tobacco: Never Smokeless Tobacco: Never Tobacco Cessation:Counseling Given: Not Answered Alcohol Use Standard Drinks/Week Comments Never 0 (1 standard drink = 0.6 oz pur e alcohol) Comments No Sex and Gender Information Value Date Recorded Sex Assigned at Not on file Legal Sex Female 12:04 PM EST Gender Identity Not on file Sexual Orientation Not on file Last Filed Vital Signs Vital Sign Reading Time Taken Comments Blood Pressure 99/59 03/29/2023 12:00 PM EST Pulse 54 03/29/2023 12:15 PM EST Temperature 36.7 C (98.1 F) 03/29/2023 12:15 PM EST Respiratory Rate 14 03/29/2023 12:1 5 PM EST Oxygen Saturation 99% 03/29/2023 12: 15 PM EST Inhaled Oxygen Concentration - - Weight 53.4 kg (117 lb 11.6 oz) 03/29/2023 7:52 AM EST Height 162.6 cm (5' 4 ) 03/27/2023 1:15 PM EST Body Mass Index 20.21 03/27/2023 1:15 PM EST Plan of Treatment Not on file Insurance [employer] - OUT OF STATE Advance Directives For more information, please contact: [phone] Documents on File Type Date Recorded Patient Fire Alarm Repairer Expl anation Advance Directives 04/02/2023 11:54 AM Care Teams Disintegrator Operator Relationship Specialty Start Date End Date Lo Pete MD [address] [place] [address] PCP - General Internal Medicine 03/27/23
--- OUTSIDE RECORDS SUMMARY | 2025-01-03 04:03 | XMS_ITS | Clinical Summary ---
Author Organization [facility] Address [address] [place] [address] Phone Care Team Providers Care Lacing String Cutter Name Role Phone Nuzhat Timmons BRIM SHAPER Primary Care Provider [phone] Allergies Active Allergy Reactions Criticality Noted Date Comments Levothyroxine Other (See Comments) Low 01/18/2023 Cystic acne Tree And Shrub Pollen 05/25/2016 Medications Medication-Free Text Take 430 mg by mouth every other day. Bovine adrenal and organic carrot Active selenium 100 mcg Tab Take 200 mcg by mouth every other day. Active IODINE ORAL Take 650 mcg by mouth every other day. Active Active Problems Problem Noted Date Diagnosed Date Vitamin D deficiency, unspecified 01/18/2023 Acquired hypothyroidism Overview (01/18/2023): Hyperthyroid Spring 2019 on 50 mcg daily, mildly hypothyroid off of rx TPO/TSH receptor antibody negative Assessment & Plan (01/23/2024 9:00 AM EDT): Clinically & biochemically euthyroid off of LT4 rx, having previously been hypothyroid & in 2020 briefly hyperthyroid on low dose of LT4. Antibodies have been negative. She is working w/ reproductive endocrinology to get . Her TSH is adequate for conception/. Would monitor w/ to ensure remains euthyroid. Gave slip for repeat TFTs in 1 yr and another to check as needed/with . Could also have repro endo vs access coordinator monitor & let me know if any issues. Assessment & Plan (01/18/2023 4:47 PM EDT): Clinically & biochemically euthyroid on a very [...] from me with results within 1-2 weeks. Hair loss Assessment & Plan (01/23/2024 9:02 AM EDT): Have tested androgens which have been normal. Had normal ferritin last year. Likely recent worsening was a telogen effluvium after hormones for IVF. Assessment & Plan (01/18/2023 4:46 PM EDT): Ongoing mild thinning. Scalp appears healthy. Previous testing looked ok, will repeat. Could consider seeing derm if persistent. Allergies Family History Medical History Relation Comments Cancer Mother Cancer Paternal Grandmother Cancer Sister Thyroid disease Neg Hx Relation Status Comments Mother Paternal Grandmother Sister Social History Tobacco Use Types Packs/Day Years Used Date Smoking Tobacco: Never Smokeless Tobacco: Never Tobacco Cessation:Counseling Given: Not Answered Alcohol Use Standard Drinks/Week Comments Never 0 (1 standard drink = 0.6 oz pur e alcohol) Education Answer Date Recorded Are you interested in more education? Not on sandra e 09/21/2022 Are you concerned about learning? Not on file 09/21/2022 No 09/21/2022 No 09/21/2022 Digital Access Answer Date Recorded No 10/10/2022 No 10/10/2022 Reliable internet access at home? Not on file 10/10/2022 Device with a working camera? Not on file Comments Unknown Sex and Gender Information Value Date Recorded Sex Assigned at Not on file Legal Sex Female 10:41 AM EDT Gender Identity Not on file Sexual Orientation Not on file Last Filed Vital Signs Vital Sign Reading Time Taken Comments Blood Pressure 110/78 01/23/2024 8:24 AM EDT Pulse 89 01/23/2024 8:24 AM EDT Temperature 36.6 C (97.8 F) 01/23/2024 8:24 AM EDT Respiratory Rate - - Oxygen Saturation 99% 01/23/2024 8:24 AM EDT Inhaled Oxygen Concentration - - Weight 53.1 kg (117 lb) 01/23/2024 8:24 AM EDT Height 162.1 cm (5' 3.82 ) 01/23/2024 8:24 AM ED T Body Mass Index 20.2 01/23/2024 8:24 AM EDT Plan of Treatment Upcoming Encounters Date Type Department Care Team (Late st Contact Info) Description 01/22/2025 8:20 AM EDT Office Visit [facility] [address] [place] [address] [place] [address] Jillian Buckley MD [address] [place] [id number] [email or web address] Health Maintenance Due Date Last Done Comments Adult Td,Tdap Booster 1994 DEPRESSION SCREENING 2006 HEPATITIS C SCREENING 2012 HIV ONE-TIME SCREENING (18-6 5 YEARS) 2012 PAP SMEAR 2015 COVID-19 VACCINE (2023-2 5 season) 2024 SMOKING STATUS SCREENING (On ce After 26 Yrs) Completed 01/23/2024 HEPATITIS A VACCINES Aged Out No long er eligible based on patient's age to complete this topic HIB VACCINES Aged Out No longer eligi ble based on patient's age to complete this topic MENINGOCOCCAL VACCINES (ACWY) Aged Out No longer eligible based on patient's age to complete this topic MENINGOCOCCAL VACCINES (B) Aged Out N o longer eligible based on patient's age to complete this topic PNEUMOCOCCAL VACCINES (0-49 years) Aged Out No longer eligible based on patient's age to complete this topic Medical Devices Not on file Insurance BLUE [employer] OUT OF STATE PPO BLUE [employer] OUT OF [facility] PPO BLUE [place] OUT OF STATE PPO [facility] OUT [facility] PPO [facility] OUT OF [facility] PPO [facility] STATE PPO Care Teams Lacing String Cutter Relationship Specialty Start Date End Date Nuzhat Timmons NP [address] [place] [address] PCP - General Nurse Practitioner 01/23/24 Additional Source Comments The information contained in this document represents components of the legal health record. It is not the complete legal health record.[facility]
[2025-01-03 04:17] LABS: Hematocrit 35.2 % (37.0-47.0); Hemoglobin 12.0 g/dl (12.0-16.0); Mean Corpuscular HGB Conc 34.1 g/dl (31.0-35.0); Mean Corpuscular Hemoglobin 27.1 pg (27.0-33.0); Mean Corpuscular Volume 79.5 fL (80.0-98.0); NRBC Abs Auto 0.000 X10*3/uL (0.0-0.012); NRBC Pct Auto 0.0 /100WBC (0.0-0.2); Platelet Count 260 X10*3/uL (160-400); Red Blood Count 4.43 X10*6/uL (4.20-5.50); White Blood Count 10.6 X10*3/uL (4.8-10.8)
[2025-01-03 04:20] LABS: Appearance Urine Clear; Glucose Urine UA Negative (Negative); PH 6.5 (5.0-9.0); Specific Gravity - Urine 1.015 (1.005-1.025); UMIC TRIGGER UACC YES
[2025-01-03 04:38] LABS: Alanine Aminotransferase 13 U/L (0-31); Albumin Level 4.5 g/dL (3.5-5.0); Alkaline Phosphatase 46 U/L (39-117); Anion Gap 13 (12-20); Aspartate Amino Transferase 18 U/L (5-31); Blood Urea Nitrogen 14 mg/dL (9-16); Calcium 9.0 mg/dL (8.4-10.2); Carbon Dioxide 19 mmol/L (22-29); Chloride 111 mmol/L (96-108); Creatinine Clr Calc Pharmacy 106.0; Estimated Glomerular Filt Rate > 60; Potassium 4.1 mmol/L (3.3-5.1); Sodium 139 mmol/L (135-145); Total Protein 6.8 g/dL (6.5-8.0)
[2025-01-03 05:10] VITALS: BP 109/70; PULSE 71; RESP 14; TEMP 36.9; O2SAT 98
[2025-01-03 06:39] VITALS: BP 120/72; PULSE 68; RESP 14; TEMP 36.6; O2SAT 99
[2025-01-03 07:31] VITALS: BP 128/79; PULSE 77; RESP 18; O2SAT 98
--- NOTE | 2025-01-03 07:32 | PC.NURSE ---
assumed care of patient. Pt has had lower to mid back pain that radiates to sides x 2 days, deniess n/v/c/d. A+Ox4, calm, cooperative, and amublatory. RR even and unlabored, denies CP or SOB.
--- NOTE | 2025-01-03 07:48 | ED_ITS ---
HPI - General Adult General Chief complaint: Back Pain/Injury Stated complaint: back pain, discolored urine Time Seen by Provider: 01/03/25 07:47 History of Present Illness ED Provider: Ken HERNANDEZ narrative: The patient is a 29-year-old woman who is generally in good health. She was hospitalized at this hospital in 2021 for an episode of pyelonephritis. She says that that time she got fairly sick fairly quickly. The patient says that 3 days ago she developed some low back pain across both sides of her lower back. She does not think she had any injury. She also noticed that her urine was somewhat darker and more orange colored than usual. She became worried that she might have a recurrent urinary tract infection or some kind of kidney problem and came to the emergency room for evaluation. She has had no fever, sweats, chills. No abdominal pain. No dysuria. She may have some mild increased urinary frequency. She has just started her period today. No chest pain or shortness of breath. She has a history of inguinal hernia repair. Related Data Home Medications ?Medication ?Instructions ?Recorded ?Confirmed levothyroxine 25 mcg tablet 50 mcg PO REESE 04/27/2210/12 (Levoxyl) Previous Rx's ?Medication ?Instructions ?Recorded oxycodone-acetaminophen 5 mg-325 1 tab PO Q6H PRN pain (scale score 10/24/22 mg tablet (Percocet) 7-10) #4 tabs phenazopyridine 200 mg tablet 200 mg PO TID for urinar y burning 10/24/22 (Pyridium) #30 tabs amoxicillin 875 mg-potassium 1 tab PO BID #12 tabs 08/03 clavulanate 125 mg tablet Allergies Allergy/AdvReac Type Severity Reaction Status Date / Time pollen extracts Allergy Intermediate Itchy Eyes Verified 01/03/25 03:44 Review of Systems 2 Review of Systems: Yes all other systems are reviewed and are negative [facility] Past Medical History Medical History Inguinal hernia Hypothyroidism Thyroid disease Surgical History Hx of tonsillectomy History of inguinal hernia repair, bilateral Family History Family History Other No family history of coronary artery disease Social History Social History Household Members: Spouse Housing: House Do you presently have visiting nurse or other home services: No Alcohol intake: never Patient Tobacco Use Status: Never used Tobacco Smoked in Last 30 Days: No Use of substances other than those prescribed or required for medical reasons: No Advance Directives: No Advance Directives Information Provided: Yes service: No Current occupational status: employed Gender identity: Female Physical Exam ED Vital Signs: Vital Signs - 24 hr 01/03/25 03:41 01/03/25 05:10 01/03/25 06:39 Temperature 97.8 F 98.4 F 97.9 F Pulse Rate 72 71 68 Respiratory Rate 18 14 14 Blood Pressure 139/87 109/70 120/72 Pulse Oximetry 100 98 99 Oxygen Delivery Method Room Air Room Air Room Air 01/03/25 07:31 Temperature Pulse Rate 77 Respiratory Rate 18 Blood Pressure 128/79 Pulse Oximetry 98 Oxygen Delivery Method Room Air BMI result Body Mass Index 20.4 Const Other: The patient is a 29-year-old female who is awake and alert. She looks as though she is ordinarily in good health. She looks well currently. She does not seem in acute distress. Orientation/consciousness: patient oriented x3 HENMT Other: The face is symmetrical. Mucous membranes moist. Eyes General: appearance normal, both eyes and all related structures Neck Neck: Yes normal visual inspection, Yes full ROM and Yes no lymphadenopathy Resp Effort & Inspection: normal respiratory effort Auscultation: clear to auscultation bilaterally Cardio Rate: regular rate Rhythm: regular rhythm Heart sounds: S1 normal heart sound present and S2 normal heart sound present GI Other: Abdomen is flat, soft, nontender. General: Yes no CVA tenderness Back/Spine/Pelvis Back: no CVA tenderness Skin Other: The skin is dry and unremarkable General skin exam: no rashes or lesions noted Neuro General: patient oriented x3, gait normal, tone normal, moves all extremities, no focal motor deficits and CN's II-XI intact bilaterally Extrem Other: There is no calf swelling or tenderness. No asymmetry. No peripheral edema. Medical Decision Making Medical Decision Making MDM Narrative: The patient is a 29-year-old woman who presents with lower back pain. She also felt that her urine had looked somewhat darker although she says it has subsequently normalized. She is just starting her menses. She has no actual dysuria, urgency, or frequency. She has no CVA percussion tenderness. She looks Quite well. She has some small amount of blood in her urine which I suspect is related to her menses. Urinalysis does not suggest UTI. Patient has a history of hospitalization for pyelonephritis which was why she was concerned about symptoms she was experiencing. I do not feel there is any evidence on her physical exam or on her labs to suggest a significant infectious process. I suspect her back pain may be musculoskeletal or possibly related to menses. I think she may be discharged. Lab Data 01/03/25 04:11 01/03/25 04:11 Labs: Lab Results 01/03/25 01/03/25 Range/Units 04:11 04:13 WBC 10.6 (4.8-10.8) X10*3/uL RBC 4.43 (4.20-5.50) X10*6/uL Hgb 12.0 (12.0-16.0) g/dl Hct 35.2 L (37.0-47.0) % MCV 79.5 L (80.0-98.0) fL MCH 27.1 (27.0-33.0) pg MCHC 34.1 (31.0-35.0) g/dl RDW 14.0 (11.0-16.0) % Plt Count 260 (160-400) X10*3/uL MPV 10.2 (9.4-12.3) fL Immature Gran % (Auto) 0.3 (0.0-0.4) % Neut % (Auto) 59.2 (45-73) % Lymph % (Auto) 30.3 (20-40) % [place] % (Auto) 9.0 (2-11) % Eos % (Auto) 0.7 (0-4) % Baso % (Auto) 0.5 (0-2) % Lymph # (Auto) 3.2 (1.2-4.9) X10*3/uL [place] # (Auto) 1.0 (0.1-1.2) X10*3/uL Eos # (Auto) 0.1 (0.0-0.4) X10*3/uL Baso # (Auto) 0.1 (0.0-0.2) X10*3/uL Abs Immat Gran (auto) 0.03 (0.00-0.03) X10*3/uL Absolute Neuts (auto) 6.3 (2.0-8.3) x10*3/uL Absolute Nucleated RBC 0.000 (0.0-0.012) X10*3/uL Nucleated RBC % (auto) 0.0 (0.0-0.2) /100WBC Sodium 139 (135-145) mmol/L Potassium 4.1 (3.3-5.1) mmol/L Chloride 111 H (96-108) mmol/L Carbon Dioxide 19 L (22-29) mmol/L Anion Gap 13 (12-20) BUN 14 (9-16) mg/dL Creatinine 0.66 (0.5-1.4) mg/dL Estim Creat Clear Calc 106.0 Estimated GFR > 60 Random Glucose 90 (60-115) mg/dL Calcium 9.0 (8.4-10.2) mg/dL Total Bilirubin 0.4 (0.0-1.0) mg/dL AST 18 (5-31) U/L ALT 13 (0-31) U/L Alkaline Phosphatase 46 (39-117) U/L C-Reactive Protein < 0.04 (< or = 0.50) mg/dL Total Protein 6.8 (6.5-8.0) g/dL Albumin 4.5 (3.5-5.0) g/dL Urine Color Yellow Urine Appearance Clear Urine pH 6.5 (5.0-9.0) Ur Specific [place] 1.015 (1.005-1.025) Urine Protein Negative (Neg-Trace) mg/dL Urine Glucose (UA) Negative (Negative) mg/dL Urine Ketones Negative (Negative) mg/dL Urine Blood Trace H (Negative) Urine Nitrite Negative (Negative) Ur Leukocyte Esterase Negative (Negative) Urine RBC 3-5 H (0-2) /HPF Urine WBC 0-5 (0-5) /HPF Ur Squamous Epith Cells 0-2 (0-2) /HPF Urine Bacteria None Seen (None Seen) Hyaline Casts 0-2 (0-2) /LPF Discharge Plan Discharge Clinical Impression: Back pain, Urine discoloration Patient Disposition: Home, Self-Care Additional Instructions: Your urine today does not suggest the presence of an infection. I think that your pain may be more muscular than related to your kidneys. You may use ibuprofen and acetaminophen as needed. Please follow up with your regular doctor if symptoms continue. If you feel significantly worse, especially if you develop a fever or vomiting, or worsening pain, please return to the emergency room for additional evaluation. Prescriptions: No Action levothyroxine [Levoxyl] 25 mcg tablet 50 mcg PO REESE amoxicillin-pot clavulanate 875-125 mg tablet 1 tab PO BID Qty: 12 0RF phenazopyridine [Pyridium] 200 mg tablet 200 mg PO TID Qty: 30 0RF Rx Instructions: take with food oxycodone-acetaminophen [Percocet] 5-325 mg tablet 1 tab PO Q6H PRN (Reason: pain (scale score 7-10)) Qty: 4 0RF Rx Instructions: Partial Fill upon patient request. Referrals: Nuzhat Timmons NP [Nurse Practitioner, Internal Medicine] Interventions: ED Discharge Assessment Last Done: 01/03/25 08:27 Discharge Date/Time: 01/03/25 08:28 Print Language: Omani
[2025-01-03 08:16] LABS: MANUAL DIFF FLAG NO
[2025-01-03 08:27] VITALS: BP 113/76; PULSE 72; RESP 16; TEMP -17.7; TEMP 0; O2SAT 98
[2025-01-03 08:27] LABS: Imm Gran Abs Auto 0.03 X10*3/uL (0.00-0.03); Imm Gran Pct Auto 0.3 % (0.0-0.4); Lymphocytes Absolute Auto 3.2 X10*3/uL (1.2-4.9)
== END 2025-01-03 08:28 | disposition home or self-care (01) ==
PROVIDERS: Emergency Provider Emergency Medicine
DX: M54.50 Low back pain, unspecified (principal); R82.998 Other abnormal findings in urine; Z87.448 Personal history of other diseases of urinary system
CPT/HCPCS: 36415; 80053; 81001; 85025; 85027; 86140; 99283; 99284